=== PATIENT | female | born 1965 | race African-American/Black ===

== ENCOUNTER 2018-07-01 18:32 | Emergency (ER) | payer OTHER ==
--- NOTE | 2018-07-01 18:34 | PDOC ---
Rapid Medical Evaluation Time Seen by Provider: 07/01/18 18:34 Medical Evaluation: Allergies Allergy/AdvReac Type Severity Reaction Status Date / Time No Known Allergies Allergy Verified 10/10/12 13:21 07/01/18 18:35 I have performed a brief in-person evaluation of this patient. The patient presents with a chief complaint of: back pain s/p slip and fall yesterday Pertinent physical exam findings: diffuse paraspinal tenderness (thoracic, lumbar, and sacral). normal strength and sensation, ambulatory. I have ordered the following: n/a The patient will proceed to the ED for further evaluation. Discharge Disposition - Diagnosis Back pain Qualifiers: Back pain location: back pain in unspecified location Chronicity: acute Back pain laterality: midline Qualified Code(s): M54.9 - Dorsalgia, unspecified - Referrals - Patient Instructions - Post Discharge Activity
[2018-07-01 18:40] VITALS: BP 166/85; PULSE 75; TEMP 98.6; BMI 34.7
[2018-07-01] MEDS ORDERED: KETOROLAC TROMETHAMINE 60 MG/2 ML VIAL IM ONE (19:40)
[2018-07-01] MEDS ORDERED: CYCLOBENZAPRINE HCL 10 MG TABLET (FP) PO ONE (19:40)
[2018-07-01] MEDS ORDERED: CYCLOBENZAPRINE HCL 10 MG TABLET (FP) ONE (19:42)
[2018-07-01] MEDS ORDERED: KETOROLAC TROMETHAMINE 60 MG/2 ML VIAL ONE (19:42)
--- NOTE | 2018-07-01 19:46 | PDOC ---
History of Present Illness - General Chief Complaint: Injury Stated Complaint: FALL Time Seen by Provider: 07/01/18 18:34 History Source: Patient Exam Limitations: No Limitations - History of Present Illness Initial Comments: 07/01/18 19:57 Patient is a 52-year-old female who presents to the ER for back pain after mechanical slip and fall yesterday. Patient states she was walking in one of the supermarkets when she hit some water soaks and felt her back. She denies LOC or hitting her head. She states that she has back pain right from her neck all the way down to her low back. Denies numbness and tingling down the extremities, pain down the extremities, weakness of the extremities bladder bowel incontinence and saddle anesthesia. Past History - Travel Traveled outside of the country in the last 30 days: No Close contact w/someone who was outside of country & ill: No - Past Medical History Allergies/Adverse Reactions: Allergies Allergy/AdvReac Type Severity Reaction Status Date / Time No Known Allergies Allergy Verified 10/10/12 13:21 Home Medications: Ambulatory Orders Cyclobenzaprine HCl [Flexeril -] 10 mg PO HS #10 tablet 07/01/18 Diclofenac Sodium [Voltaren] 1 applic TP BID #1 tube 07/01/18 Asthma: Yes CVA: Yes COPD: No Diabetes: Yes HTN: Yes Seizures: Yes - Immunization History Immunization Up to Date: No - Suicide/Smoking/Psychosocial Hx Smoking Status: No Smoking History: Never smoked Have you smoked in the past 12 months: No Number of Cigarettes Smoked Daily: 0 Information on smoking cessation initiated: No Hx Alcohol Use: No Drug/Substance Use Hx: No Substance Use Type: None Review of Systems - Review of Systems Able to Perform ROS?: Yes Comments:: 07/01/18 19:41 CONSTITUTIONAL: Absent: fever, chills, diaphoresis, generalized weakness, malaise, loss of appetite GASTROINTESTINAL: Absent: abdominal pain, abdominal distension, nausea, vomiting, diarrhea, constipation, melena, hematochezia GENITOURINARY: Absent: dysuria, frequency, urgency, hesitancy, hematuria, flank pain, genital pain MUSCULOSKELETAL: Present: back pain Absent: arthralgia, joint swelling SKIN: Absent: rash, itching, pallor NEUROLOGIC: Absent: headache, focal weakness or paresthesias, dizziness, unsteady gait, seizure, mental status changes, bladder or bowel incontinence PSYCHIATRIC: Absent: anxiety, depression, suicidal or homicidal ideation, hallucinations. Is the patient limited Portuguese proficient: No *Physical Exam - Vital Signs Last Vital Signs Temp Pulse Resp BP Pulse Ox 98.6 F 75 16 166/85 100 07/01/18 18:36 07/01/18 18:36 07/01/18 18:36 07/01/18 18:36 07/01/18 18:36 - Physical Exam Comments: 07/01/18 19:41 GENERAL: Well developed, well nourished. Awake and alert. No acute distress. HEENT: Normocephalic, atraumatic. PERRLA, EOMI. No conjunctival pallor. Sclera are non- icteric. Moist mucous membranes. Oropharynx is clear. NECK: Supple. Full ROM. No JVD. Carotid pulses 2+ and symmetric, without bruits. No thyromegaly. No lymphadenopathy. CARDIOVASCULAR: Regular rate and rhythm. No murmurs, rubs, or gallops. Distal pulses are 2+ and symmetric. PULMONARY: No evidence of respiratory distress. Lungs clear to auscultation bilaterally. No wheezing, rales or rhonchi. ABDOMINAL: Soft. Non-tender. Non-distended. No rebound or guarding. No organomegaly. Normoactive bowel sounds. MUSCULOSKELETAL TTP of the paraspinous muscles b/l from C8-L5, with palpable knots consistent with muscle spasm. Negative straight leg raise testing b/l. Decreased range of motion at the back d/t pain. Normal ROM at all other joints. No bony deformities or tenderness. No CVA tenderness. EXTREMITIES: No cyanosis. No clubbing. No edema. No calf tenderness. SKIN: Warm and dry. Normal capillary refill. No rashes. No jaundice. NEUROLOGICAL: Alert, awake, appropriate. Cranial nerves 2-12 intact. No deficits to light touch and temperature in face, upper extremities and lower extremities. No motor deficits in the in face, upper extremities and lower extremities. Normoreflexic in the upper and lower extremities. Normal speech. Toes are down- going bilaterally. Gait is normal without ataxia. PSYCHIATRIC: Cooperative. Good eye contact. Appropriate mood and affect. Moderate Sedation - Procedure Monitoring Vital Signs: Procedure Monitoring Vital Signs Temperature 98.6 F 07/01/18 18:36 Pulse Rate 75 07/01/18 18:36 Respiratory Rate 16 07/01/18 18:36 Blood Pressure 166/85 07/01/18 18:36 O2 Sat by Pulse Oximetry (%) 100 07/01/18 18:36 Medical Decision Making - Medical Decision Making 07/01/18 19:42 -Pt with TTP of the paraspinous muscles b/l from C8-L5, with palpable knots consistent with muscle spasm. Negative straight leg raise testing b/l. -No fever. No saddle anesthesia or bladder/bowel incontinence. No CVA tenderness. -Pt is neurologically intact on exam with no focal findings. -Toradol given with relief of symptoms -DC home. Ortho follow up given for if symptoms do not resolve. -I discussed the physical exam findings, ancillary test results and final diagnoses with the patient. I answered all of the patient's questions. The patient was satisfied with the care received and felt comfortable with the discharge plan and treatment plan. The Patient agrees to follow up with the primary care physician/specialist within 24-72 hours. Return precautions were given. *DC/Admit/Observation/Transfer Diagnosis at time of Disposition: Back pain Qualifiers: Back pain location: back pain in unspecified location Chronicity: acute Back pain laterality: midline Qualified Code(s): M54.9 - Dorsalgia, unspecified - Discharge Dispostion Condition at time of disposition: Stable - Prescriptions Prescriptions: Cyclobenzaprine HCl [Flexeril -] 10 mg PO HS #10 tablet Diclofenac Sodium [Voltaren] 1 applic TP BID #1 tube - Referrals Referrals: Morgan Wilkinson MD [Staff Physician] - - Patient Instructions Printed Discharge Instructions: DI for Low Back Pain, DI for Thoracic Back Pain Additional Instructions: You have back pain due to a muscle spasm. Please use the cream twice a day. You were also prescribed Flexeril. Please take this medication every 8 hours for the first day. Then take the medication before you go to bed. Do not drive after taking this medication as it may make you sleepy. You may use warm compresses on your back to help with her symptoms. Please follow-up with your primary care doctor. If your symptoms do not resolve in 3-5 days, follow-up with orthopedics. A referral has been provided for you. Return to the emergency department if you have worsening back pain, bladder or bowel incontinence, numbness and tingling in her legs, changes in the way you walk, or any new or worsening symptoms. - Post Discharge Activity
== END 2018-07-01 20:05 | disposition home or self-care (01) ==
LOC: JERFT 18:32
PROC: 3E0233Z Introduction of Anti-inflammatory into Muscle, Percutaneous Approach (ICD-10-PCS; principal; 2018-07-01)
DX: M54.89 Other dorsalgia (principal); M62.830 Muscle spasm of back; W01.0XXA Fall on same level from slipping, tripping and stumbling without subsequent striking against object, initial encounter; Y93.89 Activity, other specified; Y92.512 Supermarket, store or market as the place of occurrence of the external cause; Y99.8 Other external cause status; I10 Essential (primary) hypertension; E11.9 Type 2 diabetes mellitus without complications; Z86.69 Personal history of other diseases of the nervous system and sense organs; Z87.19 Personal history of other diseases of the digestive system; Z86.73 Personal history of transient ischemic attack (TIA), and cerebral infarction without residual deficits
CPT/HCPCS: 99281-25

== ENCOUNTER 2018-12-09 21:28 | Emergency (ER) | payer OTHER ==
[2018-12-09 21:37] VITALS: BMI 36.6
--- NOTE | 2018-12-09 21:47 | PDOC ---
History of Present Illness - General Chief Complaint: Headache Stated Complaint: MIGRAINE Time Seen by Provider: 12/09/18 21:34 History Source: Patient - History of Present Illness Initial Comments: 12/09/18 22:23 The patient is a 53 year old female with a PMH of TIA and HTN who presents to our ED with a c/o 2 day h/o headache. Headache started acutely yesterday morning and is frontal, pounding and constant. No vomiting or visual changes. Excedrin has provided little relief. Notes she has not taken her HTN medications in the last 7 years due to life stressors. TIA's in 1999 and 2011 and presented with LUE numbness/weakness. NKDA Past History - Past Medical History Allergies/Adverse Reactions: Allergies Allergy/AdvReac Type Severity Reaction Status Date / Time No Known Allergies Allergy Verified 12/09/18 21:34 Home Medications: Ambulatory Orders Cyclobenzaprine HCl [Flexeril -] 10 mg PO HS #10 tablet 07/01/18 Diclofenac Sodium [Voltaren] 1 applic TP BID #1 tube 07/01/18 Asthma: Yes CVA: Yes (TIA) COPD: No Diabetes: Yes HTN: Yes Seizures: Yes - Immunization History Immunization Up to Date: No - Suicide/Smoking/Psychosocial Hx Smoking Status: No Smoking History: Never smoked Have you smoked in the past 12 months: No Number of Cigarettes Smoked Daily: 0 Hx Alcohol Use: No Drug/Substance Use Hx: No Substance Use Type: None Review of Systems - Review of Systems Constitutional: No: Chills, Fever HEENTM: Yes: Other (photophobia, pounding frontal headache) Respiratory: No: Cough, Shortness of Breath Cardiac (ROS): No: Chest Pain, Lightheadedness, Syncope ABD/GI: No: Constipated, Diarrhea, Nausea, Vomiting *Physical Exam - Vital Signs Last Vital Signs Temp Pulse Resp BP Pulse Ox 98.2 F 56 L 18 188/90 H 99 12/09/18 21:34 12/09/18 21:34 12/09/18 21:34 12/09/18 21:34 12/09/18 21:34 - Physical Exam Comments: 12/10/18 00:50 Awake, alert, photophobia CV: S1, S2, RRR Respiratory: CLTA B/L no wheeze/crackle Abdomen: soft, non-tender, (+) bowel sounds Neuro: CN II-XII intact, A&O x3, mild decreased sensation in L face, LUE/LLE ED Treatment Course - LABORATORY CBC & Chemistry Diagram: 12/09/18 22:55 12/09/18 22:55 Medical Decision Making - Medical Decision Making 12/09/18 22:24 53 year old female with headache Hypertensive (188/90) Mild decreased sensation in LUE/LLE - possibly chronic Will obtain CT Head to evaluate for CVA, Headache cocktail. Reassess Patient needs outpatient HTN control. 12/09/18 22:55 12/09/18 23:36 Patient reassessed @ bedside Symptomatically improved Tolerating PO intake 12/10/18 00:[address] negative Repeat BP 142/88 Review of EMR shows patient was previously evaluated by Dr. Kruger for possible MS; patient counseled to f/u with Dr. Saleem as well as establishing primary care I discussed the physical exam findings, ancillary test results and final diagnoses with the patient. I answered all of the patient's questions. The patient was satisfied with the care received and felt comfortable with the discharge plan and treatment plan. The patient will return to the Emergency Department with any new, persistent or worsening symptoms. *DC/Admit/Observation/Transfer Diagnosis at time of Disposition: Headache - Discharge Dispostion Disposition: HOME Condition at time of disposition: Good Decision to Admit order: Yes - Referrals - Patient Instructions Printed Discharge Instructions: DI for Headache Additional Instructions: Please make an appointment with a primary care physician to establish intermission coordinator medical care. We have provided a referral or you can call your insurance company for a list of doctors. Please also follow-up with Dr. Saleem in the next 1 week for evaluation of your headaches. It is imperative that you are evaluated by both primary care and a neurologist. Return to the Emergency Department for any new/worsening/concerning conditions. - Post Discharge Activity
--- NOTE | 2018-12-09 21:56 | PDOC ---
Rapid Medical Evaluation Chief Complaint: Headache Time Seen by Provider: 12/09/18 21:34 Medical Evaluation: Allergies Allergy/AdvReac Type Severity Reaction Status Date / Time No Known Allergies Allergy Verified 12/09/18 21:34 12/09/18 21:34 I have performed a brief in-person evaluation of this patient. The patient presents with a chief complaint of: severe headache x 2 days- stopped taking medications x 7 years for HTN and hx of TIA x 2. Pertinent physical exam findings: comes in with severe photophobia, no relief with Exedrine. . Left sided weakness and mildly unsteady, I have ordered the following: taken to room 12 for immediate evaluation The patient will proceed to the ED for further evaluation. 12/09/18 22:05 Discharge Disposition - Diagnosis Headache - Referrals - Patient Instructions - Post Discharge Activity
[2018-12-09] MEDS ORDERED: METOCLOPRAMIDE HCL INJECTION 10 MG/2 ML VIAL IVPUSH ONE (22:22)
[2018-12-09] MEDS ORDERED: ACETAMINOPHEN 1000 MG/100 ML VIAL (NON FORMULARY) IVPB ONE (22:22)
[2018-12-09] MEDS ORDERED: SODIUM CHLORIDE 0.9% 500 ML INFUS.BAG IV ONE (22:22)
[2018-12-09] MEDS ORDERED: ACETAMINOPHEN INJECTION 100 ML IVPB ONE (22:25)
[2018-12-09] MEDS ORDERED: METOCLOPRAMIDE HCL INJECTION 10 MG/2 ML VIAL ONE (22:26)
--- NOTE | 2018-12-09 22:56 | PDOC ---
Documentation entered by Kal Martínez SCRIBE, acting as scribe for Porsche Hunter DO. Porsche Hunter DO: This documentation has been prepared by the Mauricio munoz Daniel, SCRIBE, under my direction and personally reviewed by me in its entirety. I confirm that the documentation accurately reflects all work, treatment, procedures, and medical decision making performed by me. Attending Attestation - Resident Resident Name: Rivka Fajardo - ED Attending Attestation I have performed the following: I have examined & evaluated the patient, The case was reviewed & discussed with the resident, I agree w/resident's findings & plan, Exceptions are as noted - HPI HPI: 12/09/18 22:23 The patient is a 53 year old female with a past medical history of TIA (2001, 2011), migraines, and HTN (non compliant with meds, havent taken meds in 7 years) here today for evaluation of headache. The patient reports that her headache began yesterday morning and has gotten worse since then. She describes it as a frontal pressure. She notes associated eye pressure with no visual changes. Patient denies lightheadedness. Denies fever, chills. Denies chest pain, shortness of breath. Denies nausea, vomiting, diarrhea, abdominal pain. Allergies: NKA PCP: none - Physicial Exam PE: 12/10/18 00:42 Constitutional: Awake, alert, oriented. No acute distress. Head: Normocephalic. Atraumatic Eyes: PERRL. EOMI. Conjunctivae are not pale. ENT: Mucous membranes are moist and intact. Posterior pharynx without exudates or erythema. Uvula midline. Neck: Supple. Full ROM. No lymphadenopathy. Cardiovascular: Regular rate. Regular rhythm. S1, S2 regular. Distal pulses are 2+ and symmetric. Pulmonary/Chest: No evidence of respiratory distress. Clear to auscultation bilaterally No wheezing, rales or rhonchi. Abdominal: Soft and non-distended. There is no tenderness. No rebound, guarding or rigidity. No organomegaly. No palpable masses. Good bowel sounds. Back: No CVA tenderness. Musculoskeletal: No edema. No cyanosis. No clubbing. Full range of motion in all extremities. No calf tenderness. Radial/pedal pulses are intact and 2+ bilaterally Skin: Skin is warm and dry. No petechiae. No purpura. Neurological: +sensation is mildly diminished in left cheek and forearm ( patient states she has had this since 2011). Alert and oriented to person, place , and time. Cranial nerves II-XII are grossly intact. Normal speech. Strength is grossly symmetric and 5/5 in upper and lower extremities. Psychiatric: Good eye contact. Normal interaction, affect and behavior. - Medical Decision Making 12/09/18 22:53 I, Dr. Porsche Hunter, DO, attest that this document has been prepared under my direction and personally reviewed by me in its entirety. I further attest, that it accurately reflects all work, treatment, procedures and medical decision -making performed by me. 12/09/18 22:54 a/p: 53yo female with hx of TIA and migraines presents c/o page x 2 days -pt states page x 2 days, has taken excedrin without relief -pt states she has had page similar and worse in the past -states decreased sensation to L face and L arm since tia in 2011- no new neuro findings -pt states she was seeing a neurologist in 2001 and 2011, but has not followed up with any physicians, pt also states she has not taken any meds for bp since 2012. -pt denies cp/sob -+photophobia and phonophobia -will send labs, head ct, will monitor, medicate, and reassess 12/10/18 00:[address] negative labs reviewed pt sitting up and eating stable for dc to home with neuro follow up 142/88 12/10/18 00:48
[2018-12-09 23:09] LABS: BASO % 0.8 % (0-2.0); EOS % 1.6 % (0-4.5); HEMATOCRIT 33.4 % (32.4-45.2); HEMOGLOBIN 10.9 GM/dL (10.7-15.3); LYMPH % 42.4 % (8-40); MCH 27.4 pg (25.7-33.7); MCHC 32.8 g/dl (32.0-36.0); MEAN CELL VOLUME 83.7 fl (80-96); MEAN PLT VOLUME 10.3 fl (7.5-11.1); NEUT % 47.2 % (42.8-82.8); PLATELET COUNT 178 K/MM3 (134-434); RBC 3.99 M/mm3 (3.60-5.2); RDW 13.9 % (11.6-15.6); WHITE BLOOD COUNT 5.2 K/mm3 (4.0-10.0)
[2018-12-09 23:34] LABS: ALBUMIN 3.3 g/dl (3.4-5.0); BILIRUBIN,TOTAL 0.2 mg/dL (0.2-1); BLOOD UREA NITROGEN 15.9 mg/dL (7-18); CALCIUM 8.4 mg/dL (8.5-10.1); CREATININE 0.8 mg/dL (0.55-1.3); POTASSIUM 3.5 mmol/L (3.5-5.1); TOT PROT 6.9 g/dl (6.4-8.2)
[2018-12-10 01:48] VITALS: BP 131/87; PULSE 58; TEMP 97.1
== END 2018-12-10 01:49 | disposition home or self-care (01) ==
LOC: JER 21:28
PROC: 3E033NZ Introduction of Analgesics, Hypnotics, Sedatives into Peripheral Vein, Percutaneous Approach (ICD-10-PCS; principal; 2018-12-09)
PROC: 3E033GC Introduction of Other Therapeutic Substance into Peripheral Vein, Percutaneous Approach (ICD-10-PCS; 2018-12-09)
DX: R51 Headache (principal); I10 Essential (primary) hypertension; Z86.73 Personal history of transient ischemic attack (TIA), and cerebral infarction without residual deficits; M62.81 Muscle weakness (generalized)
CPT/HCPCS: 36415; 70450-TC; 80053; 84703; 85025; 99281-25; J0131

== ENCOUNTER 2019-01-14 10:29 | Inpatient (IN) | payer OTHER ==
[2019-01-14 10:38] VITALS: BMI 37.2
[2019-01-14] MEDS ORDERED: methylPREDNISolone NA SUCC 125 MG/2 ML VIAL IVPUSH ONE (11:35)
[2019-01-14] MEDS ORDERED: methylPREDNISolone NA SUCC 1000 MG/8 ML VIAL IVPB ONE (11:41)
[2019-01-14] MEDS ORDERED: methylPREDNISolone NA SUCC 1000 MG/8 ML VIAL ONE (11:49)
[2019-01-14] MEDS ORDERED: ACETAMINOPHEN 325 MG TABLET (FP) PO ONE (12:09)
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
[2019-01-14 12:40] LABS: BASO % 0.5 % (0-2.0); EOS % 0.9 % (0-4.5); HEMATOCRIT 36.8 % (32.4-45.2); HEMOGLOBIN 12.1 GM/dL (10.7-15.3); MCH 27.8 pg (25.7-33.7); MEAN CELL VOLUME 84.3 fl (80-96); MEAN PLT VOLUME 9.6 fl (7.5-11.1); MONO % 6.8 % (3.8-10.2); NEUT % 43.8 % (42.8-82.8); PLATELET COUNT 191 K/MM3 (134-434); RBC 4.36 M/mm3 (3.60-5.2); RDW 13.7 % (11.6-15.6); WHITE BLOOD COUNT 3.6 K/mm3 (4.0-10.0)
[2019-01-14] MEDS ORDERED: ONDANSETRON 4 MG/2 ML VIAL IVPB ONE (12:48)
[2019-01-14] MEDS ORDERED: ACETAMINOPHEN 325 MG TABLET (FP) ONE (12:51)
[2019-01-14 13:07] LABS: INR 1.08 (0.83-1.09); PROTHROMBIN TIME (PATIENT) 12.7 SEC (9.7-13.0)
[2019-01-14 13:12] LABS: ALBUMIN 3.7 g/dl (3.4-5.0); BILIRUBIN,TOTAL 0.4 mg/dL (0.2-1); BLOOD UREA NITROGEN 11.8 mg/dL (7-18); CALCIUM 9.2 mg/dL (8.5-10.1); CREATININE 0.9 mg/dL (0.55-1.3); POTASSIUM 3.9 mmol/L (3.5-5.1); TOT PROT 7.9 g/dl (6.4-8.2)
--- NOTE | 2019-01-14 13:59 | EKG ---
Test Reason : Blood Pressure : / mmHG Vent. Rate : 049 BPM Atrial Rate : 049 BPM P-R Int : 196 ms QRS Dur : 080 ms QT Int : 428 ms P-R-T Axes : 031 036 021 degrees QTc Int : 386 ms SINUS BRADYCARDIA OTHERWISE NORMAL ECG WHEN COMPARED WITH ECG OF 08-JUL-2011 11:10, NO SIGNIFICANT CHANGE WAS FOUND Confirmed by GUILLERMO NIÑO MD ([id number]) on 01/14/2019 1:59:02 PM Referred By: Confirmed By:GUILLERMO NIÑO MD
--- NOTE | 2019-01-14 14:56 | CON.NEURO ---
Consult Reason for Consultation:: weakness - History of Present Illness History of Present Illness: [id number] right-handed female patient with present medical history significant for Coronary artery disease Osteoarthritis Migraine headache Chronic low back pain Hypertension Diabetes Questionable TIAs in the past Presents to the hospital with a chief complaint of difficulty with the legs and weakness. Patient was evaluated in my office few weeks ago with a chief complaint of headache patient was referred for an MRI of the brain which showed evidence of supratentorial demyelinating disease questionable multiple sclerosis patient had in the past MRIs with questionable diagnosis of MS patient never had spinal tap in the past. Patient denies any blurry vision double vision no I pain. In the emergency room patient complain of urinary incontinence and fecal incontinence with the leg weakness. MRI of the thoracic and the lumbosacral spine was ordered. - History Source History Provided By: Patient Limitations to Obtaining History: No Limitations - Alcohol/Substance Use Hx Alcohol Use: No - Smoking History Smoking history: Never smoked Have you smoked in the past 12 months: No Aproximately how many cigarettes per day: 0 Home Medications - Allergies Allergies/Adverse Reactions: Allergies Allergy/AdvReac Type Severity Reaction Status Date / Time No Known Allergies Allergy Verified 01/14/19 10:38 - Home Medications Home Medications: Ambulatory Orders Cyclobenzaprine HCl [Flexeril -] 10 mg PO HS #10 tablet 07/01/18 Diclofenac Sodium [Voltaren] 1 applic TP BID #1 tube 07/01/18 Review of Systems - Review of Systems Constitutional: reports: No Symptoms Eyes: reports: No Symptoms Neurological: reports: Headache, Incoordination, Numbness, Parasthesia Physical Exam-Neuro Vital Signs: Vital Signs Temperature 98.2 F 01/14/19 10:35 Pulse Rate 81 01/14/19 10:38 Respiratory Rate 18 01/14/19 10:38 Blood Pressure 173/109 H 01/14/19 10:38 O2 Sat by Pulse Oximetry (%) 97 01/14/19 12:44 Constitutional: Yes: Well Nourished Neck: Yes: WNL Cardiovascular: Yes: WNL Labs: CBC, BMP 01/14/19 12:30 01/14/19 12:30 INR, PTT INR 1.08 (0.83-1.09) 01/14/19 12:30 - Neuro Exam Level Of Consciousness: Yes: Oriented to Person, Oriented to Place, Oriented to Time Eyes: Yes: PERRLA Speech: WNL Dominant Hand: Right Cranial Nerves II-XII Intact: Yes Gag: Present DTR's: 1+ Left Bicep, 1+ Right Bicep, 1+ Right Tricep, 1+ Left Brachioradialis Response to light touch: Normal Response to pain prick: Normal Response to temperature: Normal Response to vibration: Normal Motor Strength: 3/5: Left Arm, Right Arm, Left Leg, Right Leg, 4/5: Right Leg Gait: Deferred Problem List - Problems (1) Multiple sclerosis Assessment/Plan: questionable flareup of demyelinating disease 1. Fall precautions. 2. MRI of thoracic spine with no contrast 3. MRI of the lumbosacral spine with no contrast. 4. Decadron 6 mg every 6. 5. BGM every shift 66. Tight blood sugar control. 7. Physical therapy. 8. Hemoglobin A1c Code(s): G35 - MULTIPLE SCLEROSIS
[2019-01-14] MEDS ORDERED: morphine CARPU-JECT 4 MG/1 ML DISP.SYRIN IVPUSH ONE (15:19)
[2019-01-14] MEDS ORDERED: morphine SULFATE 4 MG/ML VIAL ONE (15:56)
--- NOTE | 2019-01-14 16:27 | PN ---
Teaching Attending Note Name of Resident: Mamie Cedeno ATTENDING PHYSICIAN STATEMENT I saw and evaluated the patient. I reviewed the resident's note and discussed the case with the resident. I agree with the resident's findings and plan as documented. SUBJECTIVE: Patient is a 53 y/o female with PMHx of HTN, HLD, pre-DM, possible MS, presents to the ED with complaints of lower leg weakness (from T5 down), started yesterday but progressed further today where she started to have urinary and fecaL incontinence, became so scared and realized that something is wrong with him. Normally does not use cane or a walker. Recent brain MRI on 01/04/19 shows demylinating disease. As per patient she improved after having 1gm of Solu Medrol. OBJECTIVE: Vital Signs Temperature 98.2 F 01/14/19 10:35 Pulse Rate 81 01/14/19 10:38 Respiratory Rate 18 01/14/19 10:38 Blood Pressure 173/109 H 01/14/19 10:38 O2 Sat by Pulse Oximetry (%) 97 01/14/19 12:44 GENERAL: Awake, alert, and fully oriented, in mild distress. EYES:PEERLA: EOMI no scleral icterus NECK: no JVD; no lymphadenoapthy LUNGS: CTA B/L; no rales, rhonchi or wheezing HEART: Regular rate and rhythm, normal S1 and S2 without murmur, rub or gallop. ABDOMEN: Soft, nontender, not distended, normoactive bowel sounds, no guarding, no rebound, no masses. No hepatomegaly or splenomegaly. MUSCULOSKELETAL: Normal range of motion at all joints. No bony deformities or tenderness. No CVA tenderness. EXTREMITIES: warml well-perfused no clubbing/cyansois or edema NEUROLOGICAL: RUE/LUE: 5/5 srength B/L; RLE: 3/5 strength diminished sensation ; LLE: 4/5 strength sensation intact 1+ DTR"S B/L PSYCHIATRIC: Cooperative. Good eye contact. Appropriate mood and affect. SKIN: Warm, dry, normal turgor, no rashes or lesions noted, normal capillary refill. CBCD WBC 3.6 K/mm3 (4.0-10.0) L 01/14/19 12:30 RBC 4.36 M/mm3 (3.60-5.2) 01/14/19 12:30 Hgb 12.1 GM/dL (10.7-15.3) 01/14/19 12:30 Hct 36.8 % (32.4-45.2) 01/14/19 12:30 MCV 84.3 fl (80-96) 01/14/19 12:30 MCHC 33.0 g/dl (32.0-36.0) 01/14/19 12:30 RDW 13.7 % (11.6-15.6) 01/14/19 12:30 Plt Count 191 K/MM3 (134-434) 01/14/19 12:30 MPV 9.6 fl (7.5-11.1) 01/14/19 12:30 CMP Sodium 139 mmol/L (136-145) 01/14/19 12:30 Potassium 3.9 mmol/L (3.5-5.1) 01/14/19 12:30 Chloride 104 mmol/L (98-107) 01/14/19 12:30 Carbon Dioxide 30 mmol/L (21-32) 01/14/19 12:30 Anion Gap 5 MMOL/L (8-16) L 01/14/19 12:30 BUN 11.8 mg/dL (7-18) 01/14/19 12:30 Creatinine 0.9 mg/dL (0.55-1.3) 01/14/19 12:30 Random Glucose 89 mg/dL (74-106) 01/14/19 12:30 Calcium 9.2 mg/dL (8.5-10.1) 01/14/19 12:30 Total Bilirubin 0.4 mg/dL (0.2-1) 01/14/19 12:30 AST 20 U/L (15-37) 01/14/19 12:30 ALT 32 U/L (13-61) 01/14/19 12:30 Alkaline Phosphatase 148 U/L (45-117) H 01/14/19 12:30 Total Protein 7.9 g/dl (6.4-8.2) 01/14/19 12:30 Albumin 3.7 g/dl (3.4-5.0) 01/14/19 12:30 CARDIAC ENZYMES Creatine Kinase 152 U/L (26-192) 01/14/19 12:30 Troponin I < 0.02 ng/ml (0.00-0.05) 01/14/19 12:30 Home Medications Medication Instructions Recorded Cyclobenzaprine HCl [Flexeril -] 10 mg PO HS #10 tablet 07/01/18 Diclofenac Sodium [Voltaren] 1 applic TP BID #1 tube 07/01/18 Current Medications Generic Name Dose Route Start Last Admin Trade Name Daniella PRN Reason Stop Dose Admin Dexamethasone Sodium Phosphate 6 mg 01/14/19 17:15 01/14/19 18:54 Decadron Injection - IVPB 6 mg Q6H PRANAY Administration Famotidine/Sodium Chloride 20 mg in 50 mls @ 100 mls/hr 01/14/19 22:00 Pepcid 20 Mg Premixed Ivpb - IVPB BID PRANAY Morphine Sulfate 2 mg 01/14/19 18:30 01/14/19 18:55 Morphine Sulfate IVPUSH 2 mg Q4H PRANAY Administration Thoracic CT: No compression fx or sublaxation noted. CT scan done showing no evidence of cord compression ASSESSMENT AND PLAN: Patient is a 53 y/o female with PMH of HTN, HLD, pre-DM, possible MS, TIA X2 presents to the ED with complaints of lower leg weakness (from T5 down) with worsening symptoms today. #Acute LE weakness with urinary and fecal incontinence: ordered MRI of thoracic and Lspine' discussed with to start the patient on Decadron 6mg IV q6h, given 1gm of soul medrol in ED. Dr. Saleem consulted, sliding scale with coverage since the patient is on high steroid dose. neuro checks , physical therapy. Patient stated that she is improving # HTN: not on any medications currently. sodium controlled diet DVT PPX: SCDS mri is pending
[2019-01-14] MEDS ORDERED: INSULIN (NOVOLOG) ASPART 100 UNITS/ML 10ML VIAL ONE (16:36)
--- NOTE | 2019-01-14 17:26 | HP ---
CHIEF COMPLAINT: leg weakess PCP: neurologist: dr. saleem HISTORY OF PRESENT ILLNESS: 53 y/o female with PMH of HTN, HLD, pre-DM, ? MS, TIZ X2 presents to the ED with complaints of leg weakness (from t5 down). Patient states that [facility] and then starting on Thursday she started to have lower extrermity weakness- she states hat she is having weakness from her chest all the way down., however she is still ambulating. Last night she had an episode of bowel and bladder incontinence (she felt the pressure like she had to go however she didn;t feel herself actually going) and this morning the same thing happened so she came to the ED> she is in the proccess of being worked up for MS (recent brain MRI on 01/04/19 shows demyleinating disease) she denies any recent travel or any sick contacts ER course was notable for: (1) thoracic CT spine shows no evidence of cord compression or spinal stenosis; MRI pending (2)given 1.25 gram solumedrol (3)dr. saleem consulted Recent Travel: denies PAST MEDICAL HISTORY: see abve PAST SURGICAL HISTORY: hysterectomy Social History: Smoking:denies Alcohol:social alcohol use Drugs: denies Family History: mothers side- breast CA, stoamch CA, HTN, DM Allergies No Known Allergies Allergy (Verified 01/14/19 10:38) HOME MEDICATIONS: Home Medications Medication Instructions Recorded Cyclobenzaprine HCl [Flexeril -] 10 mg PO HS #10 tablet 07/01/18 Diclofenac Sodium [Voltaren] 1 applic TP BID #1 tube 07/01/18 REVIEW OF SYSTEMS CONSTITUTIONAL: Absent: fever, chills, diaphoresis, generalized weakness, malaise, loss of appetite, weight change HEENT: Absent: rhinorrhea, nasal congestion, throat pain, throat swelling, difficulty swallowing, mouth swelling, ear pain, eye pain, visual changes CARDIOVASCULAR: Absent: chest pain, syncope, palpitations, irregular heart rate, lightheadedness , peripheral edema RESPIRATORY: Absent: cough, shortness of breath, dyspnea with exertion, orthopnea, wheezing, stridor, hemoptysis GASTROINTESTINAL: Absent: abdominal pain, abdominal distension, nausea, vomiting, diarrhea, constipation, melena, hematochezia GENITOURINARY: Absent: dysuria, frequency, urgency, hesitancy, hematuria, flank pain, genital pain MUSCULOSKELETAL: Absent: myalgia, arthralgia, joint swelling, back pain, neck pain SKIN: Absent: rash, itching, pallor HEMATOLOGIC/IMMUNOLOGIC: Absent: easy bleeding, easy bruising, lymphadenopathy, frequent infections ENDOCRINE: Absent: unexplained weight gain, unexplained weight loss, heat intolerance, cold intolerance NEUROLOGIC: Present: focal weakness or parsthesias, bladder/bowel incontinence Absent: headache,, dizziness, unsteady gait, seizure, mental status changes, PSYCHIATRIC: Absent: anxiety, depression, suicidal or homicidal ideation, hallucinations. PHYSICAL EXAMINATION Vital Signs - 24 hr 01/14/19 01/14/19 01/14/19 10:35 10:38 12:44 Temperature 98.2 F Pulse Rate 63 Pulse Rate [ 81 Left Radial] Respiratory 16 18 Rate Blood Pressure 196/89 H Blood Pressure 173/109 H [Right Arm] O2 Sat by Pulse 98 97 97 Oximetry (%) GENERAL: Awake, alert, and fully oriented, in no acute distress. EYES:PEERLA: EOMI no scleral icterus NECK: no JVD; no lymphadenoapthy LUNGS: CTA B/L; no rales, rhonchi or wheezing HEART: Regular rate and rhythm, normal S1 and S2 without murmur, rub or gallop. ABDOMEN: Soft, nontender, not distended, normoactive bowel sounds, no guarding, no rebound, no masses. No hepatomegaly or splenomegaly. MUSCULOSKELETAL: Normal range of motion at all joints. No bony deformities or tenderness. No CVA tenderness. EXTREMITIES: warml well-perfused no clubbing/cyansois or edema NEUROLOGICAL: RUE/LUE: 5/5 srength B/L; RLE: 3/5 strength diminished sensation ; LLE: 4/5 strength sensation intact 1+ DTR"S B/L PSYCHIATRIC: Cooperative. Good eye contact. Appropriate mood and affect. SKIN: Warm, dry, normal turgor, no rashes or lesions noted, normal capillary refill. Laboratory Results - last 24 hr 01/14/19 01/14/19 01/14/19 12:30 12:30 12:30 WBC RBC Hgb Hct MCV MCH MCHC RDW Plt Count MPV Absolute Neuts (auto) Neutrophils % Lymphocytes % Monocytes % Eosinophils % Basophils % Nucleated RBC % PT with INR 12.70 INR 1.08 Sodium Potassium Chloride Carbon Dioxide Anion Gap BUN Creatinine Est GFR (CKD-EPI)AfAm Est GFR (CKD-EPI)NonAf Random Glucose Calcium Total Bilirubin AST ALT Alkaline Phosphatase Creatine Kinase 152 Creatine Kinase Index 0.7 CK-MB (CK-2) 1.1 Troponin I < 0.02 Total Protein Albumin Blood Type O POSITIVE Antibody Screen Negative 01/14/19 01/14/19 12:30 12:30 WBC 3.6 L RBC 4.36 Hgb 12.1 Hct 36.8 MCV 84.3 MCH 27.8 MCHC 33.0 RDW 13.7 Plt Count 191 MPV 9.6 Absolute Neuts (auto) 1.6 Neutrophils % 43.8 Lymphocytes % 48.0 H Monocytes % 6.8 Eosinophils % 0.9 Basophils % 0.5 Nucleated RBC % 0 PT with INR INR Sodium 139 Potassium 3.9 Chloride 104 Carbon Dioxide 30 Anion Gap 5 L BUN 11.8 Creatinine 0.9 Est GFR (CKD-EPI)AfAm 84.61 Est GFR (CKD-EPI)NonAf 73.00 Random Glucose 89 Calcium 9.2 Total Bilirubin 0.4 AST 20 ALT 32 Alkaline Phosphatase 148 H Creatine Kinase Creatine Kinase Index CK-MB (CK-2) Troponin I Total Protein 7.9 Albumin 3.7 Blood Type Antibody Screen ASSESSMENT/PLAN: 53 y/o female with PMH of HTN, HLD, pre-DM, ? MS, TIA X2 presents to the ED with complaints of leg weakness (from t5 down) since Thursday. #LE weakness possibly 2/2 transverse myelitis v. MS v. pateint has been experiencing weakness since thursday -CT scan done showing no evidence of cord compression -MRI pending (to be done at 8 pm) -Decadron 6mg Q6H -Dr. Saleem consulted -tight glucose control -neuro checks -physical therapy #HTN patient not on any medications currently -monitor hemodynamics F/E/N not on fluids monitor hemodynamics sodium controlled diet DVT PPX: SCDS Problem List - Problem (1) Back pain Code(s): M54.9 - DORSALGIA, UNSPECIFIED Qualifiers: Back pain location: thoracic back pain Chronicity: acute Back pain laterality: midline Qualified Code(s): M54.6 - Pain in thoracic spine (2) Leg weakness Code(s): R29.898 - OTH SYMPTOMS AND SIGNS INVOLVING THE MUSCULOSKELETAL SYSTEM Qualifiers: Laterality: bilateral Qualified Code(s): R29.898 - Other symptoms and signs involving the musculoskeletal system (3) Multiple sclerosis Code(s): G35 - MULTIPLE SCLEROSIS Visit type - Emergency Visit Emergency Visit: Yes ED Registration Date: 01/14/19 Care time: The patient presented to the Emergency Department on the above date and was hospitalized for further evaluation of their emergent condition. - New Patient This patient is new to me today: Yes Date on this admission: 01/14/19 - Critical Care Critical Care patient: No ATTENDING PHYSICIAN STATEMENT I saw and evaluated the patient. I reviewed the resident's note and discussed the case with the resident. I agree with the resident's findings and plan as documented. SUBJECTIVE: OBJECTIVE: ASSESSMENT AND PLAN:
[2019-01-14] MEDS: DEXAMETHASONE SOD PHOSPHATE 10 MG/1 ML VIAL IVPB SCH ×2 (18:54→22:28)
[2019-01-14] MEDS: MORPHINE SULFATE 2 MG/ML VIAL IVPUSH SCH ×2 (18:55→22:28)
[2019-01-14] MEDS ORDERED: PNEUMOC 13-VAL CONJ-DIP CRM/PF 0.5 ML DISP.SYRIN IM ONE (19:14)
[2019-01-14] MEDS: INSULIN SLIDING SCALE (NOVOLOG) 1 VIAL SQ SCH (21:42)
[2019-01-14] MEDS: amLODIPine BESYLATE 2.5 MG TABLET (FP) PO SCH (21:42)
[2019-01-14] MEDS: FAMOTIDINE 20 MG/50 ML IVPB 20 MG/50 ML MG IVPB SCH (21:42)
--- NOTE | 2019-01-15 00:24 | HOSP ---
Subjective - Review of Symptoms Subjective: Requested by primary team to follow up on MRI of L spine to r/o spinal stenosis. IOC findings showed large 7 cm R renal mass concerning of RCC. L4-L5 level with mild to mod broad based posterior disc bulge a/w b/l facet hypertrophic dege changes causing mild to possibly mod spinal stenosis and mild b/l neural foraminal narrowing. L5-S1 level there is mild central disc bulge associated w/ some b/l facet degen. changes, causing mild b/l neural foraminal narrowing, but no definite spinal stenosis. Neurosurg contacted (Dr. Cheng): Given review of MRI imaging, does not believe spinal stenosis is severe enough to cause bowel/urinary incontinence. Would not suggest acute neurosurg intervention at this time. Symptoms likely related to demyelinating disease; MS more likely etiology. Physical Examination Vital Signs: Vital Signs Temperature 98.5 F 01/14/19 22:10 Pulse Rate 54 L 01/14/19 22:10 Respiratory Rate 16 01/14/19 22:10 Blood Pressure 146/75 01/14/19 22:10 O2 Sat by Pulse Oximetry (%) 99 01/14/19 17:55 Labs: CBC, BMP 01/14/19 12:30 01/14/19 12:30 Visit type - Emergency Visit Emergency Visit: Yes ED Registration Date: 01/14/19 Care time: The patient presented to the Emergency Department on the above date and was hospitalized for further evaluation of their emergent condition. - New Patient This patient is new to me today: Yes Date on this admission: 01/18/19 - Critical Care Critical Care patient: No
[2019-01-15] MEDS: MORPHINE SULFATE 2 MG/ML VIAL IVPUSH SCH ×3 (03:30→10:24)
[2019-01-15] MEDS: DEXAMETHASONE SOD PHOSPHATE 10 MG/1 ML VIAL IVPB SCH ×4 (06:10→22:15)
[2019-01-15] MEDS: INSULIN SLIDING SCALE (NOVOLOG) 1 VIAL SQ SCH ×3 (06:10→16:55)
[2019-01-15 07:18] LABS: EOS % 0.1 % (0-4.5); HEMATOCRIT 38.6 % (32.4-45.2); HEMOGLOBIN 12.7 GM/dL (10.7-15.3); LYMPH % 10.7 % (8-40); MCH 27.7 pg (25.7-33.7); MCHC 32.9 g/dl (32.0-36.0); MEAN CELL VOLUME 84.2 fl (80-96); MEAN PLT VOLUME 10.5 fl (7.5-11.1); MONO % 1.1 % (3.8-10.2); NEUT % 88.1 % (42.8-82.8); PLATELET COUNT 190 K/MM3 (134-434); RBC 4.59 M/mm3 (3.60-5.2); RDW 13.9 % (11.6-15.6); WHITE BLOOD COUNT 10.2 K/mm3 (4.0-10.0)
[2019-01-15 07:50] LABS: ALBUMIN 3.7 g/dl (3.4-5.0); BILIRUBIN,TOTAL 0.2 mg/dL (0.2-1); BLOOD UREA NITROGEN 18.8 mg/dL (7-18); CALCIUM 9.6 mg/dL (8.5-10.1); CREATININE 1.1 mg/dL (0.55-1.3); MAGNESIUM 2.1 mg/dL (1.8-2.4); PHOSPHOROUS 3.2 mg/dL (2.5-4.9); POTASSIUM 4.2 mmol/L (3.5-5.1); TOT PROT 8.2 g/dl (6.4-8.2)
[2019-01-15] MEDS ORDERED: ONDANSETRON 4 MG/2 ML VIAL IVPUSH PRN (08:03)
[2019-01-15] MEDS ORDERED: INSULIN (NOVOLOG) ASPART 100 UNITS/ML 10ML VIAL ONE (08:29)
[2019-01-15] MEDS: FAMOTIDINE 20 MG/50 ML IVPB 20 MG/50 ML MG IVPB SCH ×2 (09:07→21:13)
[2019-01-15] MEDS: amLODIPine BESYLATE 2.5 MG TABLET (FP) PO SCH (09:07)
[2019-01-15] MEDS: MORPHINE SULFATE 2 MG/ML VIAL IVPUSH PRN ×2 (15:35→23:26)
--- NOTE | 2019-01-15 19:04 | PN ---
Progress Note (short form) - Note Progress Note: Patient is improving, stated that she was able to control her urine, symptoms improving but retaining urine. Vital Signs Temperature 98.2 F 01/15/19 14:44 Pulse Rate 61 01/15/19 14:44 Respiratory Rate 20 01/15/19 14:44 Blood Pressure 125/93 01/15/19 14:44 O2 Sat by Pulse Oximetry (%) 96 01/15/19 09:00 GENERAL: Awake, alert, and fully oriented, in mild distress. EYES:PEERLA: EOMI no scleral icterus NECK: no JVD; no lymphadenoapthy LUNGS: CTA B/L; no rales, rhonchi or wheezing HEART: Regular rate and rhythm, normal S1 and S2 without murmur, rub or gallop. ABDOMEN: Soft, nontender, not distended, normoactive bowel sounds, no guarding, no rebound, no masses. No hepatomegaly or splenomegaly. MUSCULOSKELETAL: Normal range of motion at all joints. No bony deformities or tenderness. No CVA tenderness. EXTREMITIES: warml well-perfused no clubbing/cyansois or edema NEUROLOGICAL: RUE/LUE: 5/5 srength B/L; RLE: 3/5 strength diminished sensation ; LLE: 4/5 strength sensation intact 1+ DTR"S B/L PSYCHIATRIC: Cooperative. Good eye contact. Appropriate mood and affect. SKIN: Warm, dry, normal turgor, no rashes or lesions noted, normal capillary refill. CBCD WBC 10.2 K/mm3 (4.0-10.0) H 01/15/19 05:25 RBC 4.59 M/mm3 (3.60-5.2) 01/15/19 05:25 Hgb 12.7 GM/dL (10.7-15.3) 01/15/19 05:25 Hct 38.6 % (32.4-45.2) 01/15/19 05:25 MCV 84.2 fl (80-96) 01/15/19 05:25 MCHC 32.9 g/dl (32.0-36.0) 01/15/19 05:25 RDW 13.9 % (11.6-15.6) 01/15/19 05:25 Plt Count 190 K/MM3 (134-434) 01/15/19 05:25 MPV 10.5 fl (7.5-11.1) 01/15/19 05:25 CMP Sodium 140 mmol/L (136-145) 01/15/19 05:25 Potassium 4.2 mmol/L (3.5-5.1) 01/15/19 05:25 Chloride 105 mmol/L (98-107) 01/15/19 05:25 Carbon Dioxide 29 mmol/L (21-32) 01/15/19 05:25 Anion Gap 7 MMOL/L (8-16) L 01/15/19 05:25 BUN 18.8 mg/dL (7-18) H 01/15/19 05:25 Creatinine 1.1 mg/dL (0.55-1.3) 01/15/19 05:25 Random Glucose 134 mg/dL (74-106) H 01/15/19 05:25 Calcium 9.6 mg/dL (8.5-10.1) 01/15/19 05:25 Total Bilirubin 0.2 mg/dL (0.2-1) 01/15/19 05:25 AST 17 U/L (15-37) 01/15/19 05:25 ALT 32 U/L (13-61) 01/15/19 05:25 Alkaline Phosphatase 152 U/L (45-117) H 01/15/19 05:25 Total Protein 8.2 g/dl (6.4-8.2) 01/15/19 05:25 Albumin 3.7 g/dl (3.4-5.0) 01/15/19 05:25 CARDIAC ENZYMES Creatine Kinase 152 U/L (26-192) 01/14/19 12:30 Troponin I < 0.02 ng/ml (0.00-0.05) 01/14/19 12:30 Current Medications Generic Name Dose Route Start Last Admin Trade Name Freq PRN Reason Stop Dose Admin Amlodipine Besylate 2.5 mg 01/14/19 21:00 01/15/19 09:07 Norvasc - PO 2.5 mg DAILY PRANAY Administration Dexamethasone Sodium Phosphate 6 mg 01/14/19 17:15 01/15/19 16:56 Decadron Injection - IVPB 6 mg Q6H PRANAY Administration Docusate Sodium 200 mg 01/15/19 22:00 Colace - PO HS PRANAY Famotidine/Sodium Chloride 20 mg in 50 mls @ 100 mls/hr 01/14/19 22:00 09:07 Pepcid 20 Mg Premixed Ivpb - IVPB 100 mls/hr BID PRANAY Administration Insulin Aspart 1 vial 01/14/19 21:15 01/15/19 16:55 Novolog Vial Sliding Scale - SQ Not Given [facility] Protocol Morphine Sulfate 2 mg 01/15/19 12:12 01/15/19 15:35 Morphine Sulfate IVPUSH 2 mg Q4H PRN Administration PAIN LEVEL 6-10 Ondansetron HCl 4 mg 01/15/19 08:03 Zofran Injection IVPUSH Q6H PRN NAUSEA Thoracic CT: No compression fx or sublaxation noted. CT scan done showing no evidence of cord compression ASSESSMENT AND PLAN: Patient is a 53 y/o female with PMH of HTN, HLD, pre-DM, possible MS, TIA X2 presents to the ED with complaints of lower leg weakness (from T5 down) with worsening symptoms today. #Acute LE weakness with urinary and fecal incontinence: s/p MRI of thoracic and Lspine , discussed with , patient is on Decadron 6mg IV q6h, s/p 1gm of solu medrol in ED. sliding scale with coverage since the patient is on high steroid dose. neuro checks , physical therapy. # HTN: not on any medications currently. sodium controlled diet DVT PPX: Heparin sq Visit type - Emergency Visit Emergency Visit: Yes ED Registration Date: 01/14/19 Care time: The patient presented to the Emergency Department on the above date and was hospitalized for further evaluation of their emergent condition. - New Patient This patient is new to me today: No - Critical Care Critical Care patient: No - Discharge Referral Referred to [facility] No
[2019-01-15] MEDS: DOCUSATE SODIUM 100 MG CAPSULE (FP) PO SCH (21:09)
[2019-01-16] MEDS: DEXAMETHASONE SOD PHOSPHATE 10 MG/1 ML VIAL IVPB SCH ×4 (06:19→23:31)
[2019-01-16] MEDS: INSULIN SLIDING SCALE (NOVOLOG) 1 VIAL SQ SCH ×3 (06:26→17:35)
--- NOTE | 2019-01-16 09:10 | PN ---
Teaching Attending Note Name of Resident: Nicole Cui ATTENDING PHYSICIAN STATEMENT I saw and evaluated the patient. I reviewed the resident's note and discussed the case with the resident. I agree with the resident's findings and plan as documented. SUBJECTIVE: Patient is improving better than before OBJECTIVE: Vital Signs Temperature 97.6 F 01/16/19 06:00 Pulse Rate 53 L 01/16/19 06:00 Respiratory Rate 18 01/16/19 06:00 Blood Pressure 134/70 01/16/19 06:00 O2 Sat by Pulse Oximetry (%) 96 01/15/19 09:00 GENERAL: Awake, alert, and fully oriented, in NAD . EYES:PEERLA: EOMI no scleral icterus NECK: no JVD; no lymphadenoapthy LUNGS: CTA B/L; no rales, rhonchi or wheezing HEART: Regular rate and rhythm, normal S1 and S2 without murmur, rub or gallop. ABDOMEN: Soft, nontender, not distended, normoactive bowel sounds, no guarding, no rebound, no masses. No hepatomegaly or splenomegaly. MUSCULOSKELETAL: Normal range of motion at all joints. No bony deformities or tenderness. No CVA tenderness. EXTREMITIES: warml well-perfused no clubbing/cyansois or edema NEUROLOGICAL: RUE/LUE: 5/5 srength B/L; RLE: 3/5 strength diminished sensation ; LLE: 4/5 strength sensation intact 1+ DTR B/L PSYCHIATRIC: Cooperative. Good eye contact. Appropriate mood and affect. SKIN: Warm, dry, normal turgor, no rashes or lesions noted, normal capillary refill. CBCD WBC 10.2 K/mm3 (4.0-10.0) H 01/15/19 05:25 RBC 4.59 M/mm3 (3.60-5.2) 01/15/19 05:25 Hgb 12.7 GM/dL (10.7-15.3) 01/15/19 05:25 Hct 38.6 % (32.4-45.2) 01/15/19 05:25 MCV 84.2 fl (80-96) 01/15/19 05:25 MCHC 32.9 g/dl (32.0-36.0) 01/15/19 05:25 RDW 13.9 % (11.6-15.6) 01/15/19 05:25 Plt Count 190 K/MM3 (134-434) 01/15/19 05:25 MPV 10.5 fl (7.5-11.1) 01/15/19 05:25 CMP Sodium 140 mmol/L (136-145) 01/15/19 05:25 Potassium 4.2 mmol/L (3.5-5.1) 01/15/19 05:25 Chloride 105 mmol/L (98-107) 01/15/19 05:25 Carbon Dioxide 29 mmol/L (21-32) 01/15/19 05:25 Anion Gap 7 MMOL/L (8-16) L 01/15/19 05:25 BUN 18.8 mg/dL (7-18) H 01/15/19 05:25 Creatinine 1.1 mg/dL (0.55-1.3) 01/15/19 05:25 Random Glucose 134 mg/dL (74-106) H 01/15/19 05:25 Calcium 9.6 mg/dL (8.5-10.1) 01/15/19 05:25 Total Bilirubin 0.2 mg/dL (0.2-1) 01/15/19 05:25 AST 17 U/L (15-37) 01/15/19 05:25 ALT 32 U/L (13-61) 01/15/19 05:25 Alkaline Phosphatase 152 U/L (45-117) H 01/15/19 05:25 Total Protein 8.2 g/dl (6.4-8.2) 01/15/19 05:25 Albumin 3.7 g/dl (3.4-5.0) 01/15/19 05:25 CARDIAC ENZYMES Creatine Kinase 152 U/L (26-192) 01/14/19 12:30 Troponin I < 0.02 ng/ml (0.00-0.05) 01/14/19 12:30 Current Medications Generic Name Dose Route Start Last Admin Trade Name Freq PRN Reason Stop Dose Admin Amlodipine Besylate 2.5 mg 01/14/19 21:00 01/15/19 09:07 Norvasc - PO 2.5 mg DAILY PRANAY Administration Dexamethasone Sodium Phosphate 6 mg 01/14/19 17:15 01/16/19 06:19 Decadron Injection - IVPB 6 mg Q6H PRANAY Administration Docusate Sodium 200 mg 01/15/19 22:00 01/15/19 21:09 Colace - PO 200 mg HS PRANAY Administration Famotidine/Sodium Chloride 20 mg in 50 mls @ 100 mls/hr 01/14/19 22:00 21:13 Pepcid 20 Mg Premixed Ivpb - IVPB 100 mls/hr BID PRANAY Administration Insulin Aspart 1 vial 01/14/19 21:15 01/16/19 06:26 Novolog Vial Sliding Scale - SQ Not Given TIDAC [facility] Protocol Morphine Sulfate 2 mg 01/15/19 12:12 01/15/19 23:26 Morphine Sulfate IVPUSH 2 mg Q4H PRN Administration PAIN LEVEL 6-10 Ondansetron HCl 4 mg 01/15/19 08:03 Zofran Injection IVPUSH Q6H PRN NAUSEA Thoracic CT: No compression fx or sublaxation noted. CT scan done showing no evidence of cord compression MRI: DDD; lumbosacral spine predominant L5-S1 with narrowing L5-S1 disc space L5-S1 herniation lateralization toward the left, obliterating the left recess mass effect on the left [id number] root L4-5 broad based bulging annulus indenting slightly on the right and left L5 nerve roots with degenerative changes articular facets. ASSESSMENT AND PLAN: Patient is a 53 y/o female with PMH of HTN, HLD, pre-DM, possible MS, TIA X2 presents to the ED with complaints of lower leg weakness (from T5 down) with worsening symptoms today. #Acute LE weakness with urinary and fecal incontinence: improving , MRI of thoracic and Lspine result as above, neuro surgery on the case and on the case. continue Decadron 6mg IV q6h, given 1gm of soul medrol in ED. sliding scale with coverage since the patient is on high steroid dose. neuro checks, physical therapy. Patient stated that she is improving # HTN: stable , on Norvasc 2.5mg daily ,sodium controlled diet DVT PPX: Lovenox
[2019-01-16] MEDS: FAMOTIDINE 20 MG/50 ML IVPB 20 MG/50 ML MG IVPB SCH ×2 (11:22→21:20)
[2019-01-16] MEDS: amLODIPine BESYLATE 2.5 MG TABLET (FP) PO SCH (11:22)
[2019-01-16] MEDS: MORPHINE SULFATE 2 MG/ML VIAL IVPUSH PRN (11:23)
--- NOTE | 2019-01-16 12:49 | PN ---
Physical Exam: SUBJECTIVE: Patient seen and examined at bedside. In good spirits, improved sensation in LLE. OBJECTIVE: Vital Signs Period Temp Pulse Resp BP Sys/Rice Pulse Ox Last 24 Hr 97.6 F-98.2 F 53-61 18-20 125-134/68-93 GENERAL: The patient is pleasant. in NAD HEAD: Normal with no signs of trauma. EYES: PERRL, extraocular movements intact, sclera anicteric, conjunctiva clear. ENT: Ears normal, nares patent, oropharynx clear without exudates, moist mucous membranes. NECK: Trachea midline, supple. LUNGS: CTA b/l HEART: Regular rate and rhythm, S1, S2 without murmur, rub or gallop. ABDOMEN: Soft, obese, nontender, nondistended, normoactive bowel sounds EXTREMITIES: 2+ pt pulses, no edema. BACK: +TTP lumbar paraspinal NEUROLOGICAL: Cranial nerves II through XII grossly intact. +sensation in LE intact however c/o numbness, 4/5 motor strength RLE, LLE. PSYCH: Normal mood, normal affect. SKIN: Warm, dry : +greenfield, draining yellow urine Laboratory Results 01/15/19 01/15/19 01/15/19 11:04 16:54 22:17 POC Glucometer 172 148 177 01/16/19 06:26 POC Glucometer [address]: +7.9cm RUQ mass, L5=S1 degenerative disc dz, L5-S1 disc herniation, sai stenosis, L4-L5 canal stenosis. ASSESSMENT/PLAN: 53 y/o F with PMH HTN, HLD, possible MS, TIA x 2, who presented for lower extremity weakness. #LE weakness -possible 2/2 MS -c/w decadron -on morphine for pain control -neuro on case, neurosx to see pt -ISS while pt on steroids -PT #Constipation -c/w colace #HTN- controlled -c/w amlodipine #F/E/N not requiring IVF continue to follow lytes na controlled diet #PPX DVT: SCD's #Dispo cont'd monitoring on med-surg PT Visit type - Emergency Visit Emergency Visit: No - New Patient This patient is new to me today: Yes Date on this admission: 01/16/19 - Critical Care Critical Care patient: No
[2019-01-16] MEDS: DOCUSATE SODIUM 100 MG CAPSULE (FP) PO SCH (21:20)
[2019-01-16] MEDS: HEPARIN NA (PORCINE) 5,000 UNITS/ML 1ML VIAL SQ SCH (21:22)
[2019-01-17] MEDS: DEXAMETHASONE SOD PHOSPHATE 10 MG/1 ML VIAL IVPB SCH ×4 (04:40→22:26)
[2019-01-17] MEDS: INSULIN SLIDING SCALE (NOVOLOG) 1 VIAL SQ SCH ×3 (06:46→18:09)
[2019-01-17] MEDS: HEPARIN NA (PORCINE) 5,000 UNITS/ML 1ML VIAL SQ SCH ×3 (06:46→21:02)
[2019-01-17] MEDS ORDERED: INSULIN (LEVEMIR) 100 UNITS/ML UNITS SQ ONE (06:51)
[2019-01-17] MEDS ORDERED: INSULIN (NOVOLOG) ASPART 100 UNITS/ML 10ML VIAL ONE (06:51)
--- NOTE | 2019-01-17 08:22 | PN ---
Progress Note (short form) - Note Progress Note: events noted Chart reviewed Patient still hospital Still with the leg weakness No urinary or fecal incontinence Await the MRI of thoracic and the lumbosacral spine to rule out spinal cord lesion Problem List - Problems (1) Multiple sclerosis Code(s): G35 - MULTIPLE SCLEROSIS
[2019-01-17] MEDS: FAMOTIDINE 20 MG/50 ML IVPB 20 MG/50 ML MG IVPB SCH ×2 (10:02→21:02)
[2019-01-17] MEDS: amLODIPine BESYLATE 2.5 MG TABLET (FP) PO SCH (10:02)
[2019-01-17] MEDS ORDERED: ACETAMINOPHEN 325 MG TABLET (FP) PO PRN (10:53)
[2019-01-17] MEDS: ACETAMINOPHEN 325 MG TABLET (FP) PO PRN (11:24)
--- NOTE | 2019-01-17 11:47 | CON.GU ---
Consult Consult Specialty:: Urology Reason for Consultation:: Left renal mass - History of Present Illness Chief Complaint: weakness. Mul neurologic symptoms - History Source History Provided By: Patient, Medical Record - Past Medical History ...: No (hysterectomy 2009) - Alcohol/Substance Use Hx Alcohol Use: No - Smoking History Smoking history: Never smoked Have you smoked in the past 12 months: No Aproximately how many cigarettes per day: 0 Home Medications - Allergies Allergies/Adverse Reactions: Allergies Allergy/AdvReac Type Severity Reaction Status Date / Time No Known Allergies Allergy Verified 01/14/19 10:38 Physical Exam- Vital Signs: Vital Signs Temperature 99.1 F 01/17/19 08:19 Pulse Rate 58 L 01/17/19 08:19 Respiratory Rate 18 01/17/19 08:23 Blood Pressure 131/98 01/17/19 08:19 O2 Sat by Pulse Oximetry (%) 100 01/17/19 08:23 Gastrointestinal: Yes: WNL, Normal Bowel Sounds, Soft Renal/: Yes: WNL Labs: CBC, BMP 01/15/19 05:25 01/15/19 05:25 Imaging - Results Cat Scan: Report Reviewed Problem List - Problems (1) Renal mass, left Assessment/Plan: 53 yo female currently being evaluated for multiple neuologic symptoms found to have incidental left renal mass 7.[address] w and w/o contrast to evaluate w proper imaging Code(s): N28.89 - OTHER SPECIFIED DISORDERS OF KIDNEY AND URETER
--- NOTE | 2019-01-17 13:50 | CONSULT ---
Consult - text type - Consultation Consultation Note: NEUROSURGERY CONSULTATION Cassi Temple is a 53 year old female who was in her usual state of good ruby until last week when she noted progressive onset of numbness below the T4/T5 levels. She denies any antecedent accident or injury which may have been causative although she recalls going to a water park the day prior to onset of symptoms. The patient has recently received a provisional diagnosis of Demyelinating disease/Multiple Sclerosis in outpatient evaluation by Dr. Matheus Saleem. Although she has had a sense of Right greater than Left leg weakness, she was reported to be able to ambulate. She has been constipated since admission and had urinary difficulties. She denies low back pain or lower extremity radicular pain. A greenfield catheter was placed and Lumbar MRI demonstrates degenerative changes with a disc herniation at L5S1 which is eccentric to the Left. Thoracic CT and MRI do not reveal pathology which may account for her symptoms. The Lumbar pathology does not appear to be sufficient to result in a cauda equina syndrome and she is not manifesting clear symptoms which would likely be associated with them. At this point, Acute Neurosurgical intervention does not appear to be indicated and her symptoms do not appear to be associated with the Lumbar pathology. Differential diagnosis for her sensory loss may include: Transverse Myelitis, Demyelination/Multiple Sclerosis, paraneoplastic syndrome associated with her Renal lesion.
--- NOTE | 2019-01-17 15:38 | PN ---
Progress Note (short form) - Note Progress Note: events noted Chart review notes I reviewed all the images of the thoracic and the lumbosacral spine MRI No evidence of cord compression No evidence of thoracic myelitis Disc bulge noted at L4-L5 right more than left with no evidence of foraminal stenosis Seen by neurosurgery Agree to the neurosurgical assessment and evaluation Patient is not a candidate at this point for any neurosurgical intervention MRI of the thoracic spine revealed 7.9 mass on the kidney Await CAT scan of the abdomen with and without contrast Repeat MRI of the brain with contrast for multiple sclerosis could be done as an outpatient Patient will need a spinal tap that we will arrange as an outpatient Problem List - Problems (1) Multiple sclerosis Code(s): G35 - MULTIPLE SCLEROSIS
--- NOTE | 2019-01-17 17:15 | PN ---
Physical Exam: SUBJECTIVE: Patient seen and examined at bedside. No acute events. OBJECTIVE: Vital Signs Period Temp Pulse Resp BP Sys/Rice Pulse Ox Last 24 Hr 97.7 F-99.1 F 44-88 17-20 131-153/76-98 100-100 GENERAL: The patient is awake, alert, and fully oriented, in no acute distress. HEAD: Normal with no signs of trauma. EYES: PERRL, extraocular movements intact, sclera anicteric, conjunctiva clear. No ptosis. ENT: Ears normal, nares patent, oropharynx clear without exudates, moist mucous membranes. NECK: supple. LUNGS: Breath sounds equal, clear to auscultation bilaterally, no wheezes, no crackles, no accessory muscle use. HEART: Regular rate and rhythm, S1, S2 without murmur, rub or gallop. ABDOMEN: Soft, nondistended, no guarding, impaired sensation from breasts down ( T4-T5 below), tough to assess for tenderness. EXTREMITIES: warm, well-perfused, no edema. NEUROLOGICAL: 3/5 right sided leg extension and plantarflexion/dorsiflexion, 4/ 5 on left side. Impaired sensation b/l on waist and abdomen. Normal speech, gait not observed. PSYCH: Normal mood, normal affect. SKIN: Warm, dry, no rashes or lesions noted Laboratory Results - last 24 hr 01/16/19 01/16/19 01/17/19 12:28 17:35 06:33 POC Glucometer 156 178 134 01/17/19 12:51 POC Glucometer 103 Active Medications Generic Name Dose Route Start Last Admin Trade Name Oleksandrq PRN Reason Stop Dose Admin Acetaminophen 650 mg 01/17/19 11:16 01/17/19 11:24 Tylenol - PO 650 mg Q6H PRN Administration PAIN LEVEL 1-5 Amlodipine Besylate 2.5 mg 01/14/19 21:00 01/17/19 10:02 Norvasc - PO 2.5 mg DAILY PRANAY Administration Dexamethasone Sodium Phosphate 6 mg 01/14/19 17:15 01/17/19 12:40 Decadron Injection - IVPB 6 mg Q6H PRANAY Administration Docusate Sodium 200 mg 01/15/19 22:00 01/16/19 21:20 Colace - PO 200 mg HS PRANAY Administration Heparin Sodium (Porcine) 5,000 unit 01/16/19 22:00 01/17/19 15:23 Heparin - SQ 5,000 unit TID PRANAY Administration Famotidine/Sodium Chloride 20 mg in 50 mls @ 100 mls/hr 01/14/19 22:00 10:02 Pepcid 20 Mg Premixed Ivpb - IVPB 100 mls/hr BID PRANAY Administration Insulin Aspart 1 vial 01/14/19 21:15 01/17/19 12:41 Novolog Vial Sliding Scale - SQ Not Given TIDAC [facility] Protocol Morphine Sulfate 2 mg 01/15/19 12:12 01/16/19 11:23 Morphine Sulfate IVPUSH 2 mg Q4H PRN Administration PAIN LEVEL 6-10 Ondansetron HCl 4 mg 01/15/19 08:03 Zofran Injection IVPUSH Q6H PRN NAUSEA ASSESSMENT/PLAN: 53 y/o F with PMH HTN, HLD, possible MS, TIA x 2, who presented for lower extremity weakness. #LE weakness -possible 2/2 MS -c/w decadron -on morphine for pain control -Neuro (Dr. Campbell)- no evidence of cord compression or thoracic myelitis, disc bulge of L5-S1 on right more than left side, no foraminal stenosis. Agrees w Dr Guo's assesment. Repeat MRI of brain with contrast for MS could be done as o/p. Pt will need spinal tap as o/p. -Neurosx (Dr. Guo)- does not think pt is a surgical candidate at this time. Does not believe this disc bulge was cause of bowel and bladder incontinence, does not think its cauda equina syndrome. Thinks her sensory loss could be from : Transverse Myelitis, Demyelination/Multiple Sclerosis, paraneoplastic syndrome associated with her Renal lesion. -ISS while pt on steroids -PT #Renal Mass - Dr. Liriano (urology)- rt renal mass f/u CT of abdomen. #Constipation -c/w colace #HTN- controlled -c/w amlodipine #F/E/N not requiring IVF continue to follow lytes na controlled diet #PPX DVT: SCD's #Dispo cont'd monitoring on med-surg PT Visit type - Emergency Visit Emergency Visit: No - New Patient This patient is new to me today: Yes Date on this admission: 01/17/19 - Critical Care Critical Care patient: No - Discharge Referral Referred to [facility] No ATTENDING PHYSICIAN STATEMENT I saw and evaluated the patient. I reviewed the resident's note and discussed the case with the resident. I agree with the resident's findings and plan as documented. SUBJECTIVE: OBJECTIVE: ASSESSMENT AND PLAN:
--- NOTE | 2019-01-17 17:46 | PN ---
Teaching Attending Note Name of Resident: Homero Borjas ATTENDING PHYSICIAN STATEMENT I saw and evaluated the patient. I reviewed the resident's note and discussed the case with the resident. I agree with the resident's findings and plan as documented. SUBJECTIVE: Patient is feeling better but continues to have no sensation between her waist line and above her thigh area. had a minimal physical therapy today. OBJECTIVE: Vital Signs Temperature 98.2 F 01/17/19 15:34 Pulse Rate 49 L 01/17/19 15:34 Respiratory Rate 20 01/17/19 15:34 Blood Pressure 145/88 01/17/19 15:34 O2 Sat by Pulse Oximetry (%) 100 01/17/19 08:23 GENERAL: Awake, alert, and fully oriented, in NAD . EYES:PEERLA: EOMI no scleral icterus NECK: no JVD; no lymphadenoapthy LUNGS: CTA B/L; no rales, rhonchi or wheezing HEART: Regular rate and rhythm, normal S1 and S2 without murmur, rub or gallop. ABDOMEN: Soft, nontender, not distended, normoactive bowel sounds, no guarding, no rebound, no masses. No hepatomegaly or splenomegaly. MUSCULOSKELETAL: Normal range of motion at all joints. No bony deformities or tenderness. No CVA tenderness. EXTREMITIES: warml well-perfused no clubbing/cyansois or edema NEUROLOGICAL: RUE/LUE: 5/5 srength B/L; RLE: 3/5 strength diminished sensation ; LLE: 4/5 strength sensation intact 1+ DTR B/L, no sensation below waist line. PSYCHIATRIC: Cooperative. Good eye contact. Appropriate mood and affect. SKIN: Warm, dry, normal turgor, no rashes or lesions noted, normal capillary refill. CBCD WBC 10.2 K/mm3 (4.0-10.0) H 01/15/19 05:25 RBC 4.59 M/mm3 (3.60-5.2) 01/15/19 05:25 Hgb 12.7 GM/dL (10.7-15.3) 01/15/19 05:25 Hct 38.6 % (32.4-45.2) 01/15/19 05:25 MCV 84.2 fl (80-96) 01/15/19 05:25 MCHC 32.9 g/dl (32.0-36.0) 01/15/19 05:25 RDW 13.9 % (11.6-15.6) 01/15/19 05:25 Plt Count 190 K/MM3 (134-434) 01/15/19 05:25 MPV 10.5 fl (7.5-11.1) 01/15/19 05:25 CMP Sodium 140 mmol/L (136-145) 01/15/19 05:25 Potassium 4.2 mmol/L (3.5-5.1) 01/15/19 05:25 Chloride 105 mmol/L (98-107) 01/15/19 05:25 Carbon Dioxide 29 mmol/L (21-32) 01/15/19 05:25 Anion Gap 7 MMOL/L (8-16) L 01/15/19 05:25 BUN 18.8 mg/dL (7-18) H 01/15/19 05:25 Creatinine 1.1 mg/dL (0.55-1.3) 01/15/19 05:25 Random Glucose 134 mg/dL (74-106) H 01/15/19 05:25 Calcium 9.6 mg/dL (8.5-10.1) 01/15/19 05:25 Total Bilirubin 0.2 mg/dL (0.2-1) 01/15/19 05:25 AST 17 U/L (15-37) 01/15/19 05:25 ALT 32 U/L (13-61) 01/15/19 05:25 Alkaline Phosphatase 152 U/L (45-117) H 01/15/19 05:25 Total Protein 8.2 g/dl (6.4-8.2) 01/15/19 05:25 Albumin 3.7 g/dl (3.4-5.0) 01/15/19 05:25 CARDIAC ENZYMES Creatine Kinase 152 U/L (26-192) 01/14/19 12:30 Troponin I < 0.02 ng/ml (0.00-0.05) 01/14/19 12:30 Current Medications Generic Name Dose Route Start Last Admin Trade Name Freq PRN Reason Stop Dose Admin Acetaminophen 650 mg 01/17/19 11:16 01/17/19 11:24 Tylenol - PO 650 mg Q6H PRN Administration PAIN LEVEL 1-5 Amlodipine Besylate 2.5 mg 01/14/19 21:00 01/17/19 10:02 Norvasc - PO 2.5 mg DAILY PRANAY Administration Dexamethasone Sodium Phosphate 6 mg 01/14/19 17:15 01/17/19 12:40 Decadron Injection - IVPB 6 mg Q6H PRANAY Administration Docusate Sodium 200 mg 01/15/19 22:00 01/16/19 21:20 Colace - PO 200 mg HS PRANAY Administration Heparin Sodium (Porcine) 5,000 unit 01/16/19 22:00 01/17/19 15:23 Heparin - SQ 5,000 unit TID PRANAY Administration Famotidine/Sodium Chloride 20 mg in 50 mls @ 100 mls/hr 01/14/19 22:00 10:02 Pepcid 20 Mg Premixed Ivpb - IVPB 100 mls/hr BID PRANAY Administration Insulin Aspart 1 vial 01/14/19 21:15 01/17/19 12:41 Novolog Vial Sliding Scale - SQ Not Given TIDAC [facility] Protocol Morphine Sulfate 2 mg 01/15/19 12:12 01/16/19 11:23 Morphine Sulfate IVPUSH 2 mg Q4H PRN Administration PAIN LEVEL 6-10 Ondansetron HCl 4 mg 01/15/19 08:03 Zofran Injection IVPUSH Q6H PRN NAUSEA Thoracic CT: No compression fx or sublaxation noted. CT scan done showing no evidence of cord compression MRI: On coronal image #11 and #12 there is a large solid lesion upper pole right kidney measuring 7.5cm malignancy can't be excluded. DDD; lumbosacral spine predominant L5-S1 with narrowing L5-S1 disc space L5-S1 herniation lateralization toward the left, obliterating the left recess mass effect on the left [id number] root L4-5 broad based bulging annulus indenting slightly on the right and left L5 nerve roots with degenerative changes articular facets. ASSESSMENT AND PLAN: Patient is a 53 y/o female with PMH of HTN, HLD, pre-DM, possible MS, TIA X2 presents to the ED with complaints of lower leg weakness (from T5 down) with worsening symptoms. # Large right kidney mass of 7.9cm can't r/o malignancy ; consulted, patient is going for Ct of abdomen and pelvis with and without IV contrast, follow the CT result, Oncology consulted dr. Grier #Acute LE weakness with urinary and fecal incontinence: improving , MRI of thoracic and Lspine result as above, neuro surgery on the case and appreciated , no neurosurgical intervention is needed. charissa't r/o transverse myelitis, exacerbation of MS, paraneoplastic syndrome can't be ruled out. on the case. continue Decadron 6mg IV q6h, given 1gm of soul medrol in ED. sliding scale with coverage since the patient is on high steroid dose. neuro checks, physical therapy. Patient stated that she is improving # HTN: stable , on Norvasc 2.5mg daily ,sodium controlled diet DVT PPX: Lovenox
[2019-01-17] MEDS: MORPHINE SULFATE 2 MG/ML VIAL IVPUSH PRN (21:02)
[2019-01-17] MEDS: DOCUSATE SODIUM 100 MG CAPSULE (FP) PO SCH (21:02)
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
[2019-01-18] MEDS: DEXAMETHASONE SOD PHOSPHATE 10 MG/1 ML VIAL IVPB SCH ×4 (06:07→23:05)
[2019-01-18] MEDS: HEPARIN NA (PORCINE) 5,000 UNITS/ML 1ML VIAL SQ SCH ×3 (06:08→21:41)
[2019-01-18] MEDS: INSULIN SLIDING SCALE (NOVOLOG) 1 VIAL SQ SCH ×3 (06:38→16:35)
[2019-01-18 07:49] LABS: BASO % 0.1 % (0-2.0); HEMATOCRIT 36.7 % (32.4-45.2); HEMOGLOBIN 12.2 GM/dL (10.7-15.3); LYMPH % 11.5 % (8-40); MCH 27.7 pg (25.7-33.7); MCHC 33.2 g/dl (32.0-36.0); MEAN CELL VOLUME 83.4 fl (80-96); MEAN PLT VOLUME 10.2 fl (7.5-11.1); MONO % 2.7 % (3.8-10.2); NEUT % 85.7 % (42.8-82.8); PLATELET COUNT 165 K/MM3 (134-434); RDW 13.9 % (11.6-15.6); WHITE BLOOD COUNT 8.9 K/mm3 (4.0-10.0)
[2019-01-18 07:51] LABS: ALBUMIN 3.2 g/dl (3.4-5.0); BILIRUBIN,TOTAL 0.4 mg/dL (0.2-1); BLOOD UREA NITROGEN 21.4 mg/dL (7-18); CALCIUM 8.8 mg/dL (8.5-10.1); CREATININE 0.9 mg/dL (0.55-1.3); TOT PROT 7.4 g/dl (6.4-8.2)
[2019-01-18] MEDS ORDERED: GLYCERIN 1 RECTAL SUPPOSITORY, ADULT RC ONE (08:30)
[2019-01-18] MEDS: FAMOTIDINE 20 MG/50 ML IVPB 20 MG/50 ML MG IVPB SCH ×2 (10:37→21:41)
[2019-01-18] MEDS: amLODIPine BESYLATE 2.5 MG TABLET (FP) PO SCH (12:36)
--- NOTE | 2019-01-18 14:03 | PN ---
Physical Exam: SUBJECTIVE: Patient seen and examined at the bedside this AM. No acute events overnight. OBJECTIVE: Vital Signs Period Temp Pulse Resp BP Sys/Rice Pulse Ox Last 24 Hr 97.7 F-98.2 F 45-84 17-20 142-149/68-88 100 GENERAL: The patient is awake, alert, and fully oriented, in no acute distress. HEAD: Normal with no signs of trauma. EYES: PERRL, extraocular movements intact, sclera anicteric, conjunctiva clear. No ptosis. ENT: Ears normal, nares patent, oropharynx clear without exudates, moist mucous membranes. NECK: supple. LUNGS: Breath sounds equal, clear to auscultation bilaterally, no wheezes, no crackles, no accessory muscle use. HEART: Regular rate and rhythm, S1, S2 without murmur, rub or gallop. ABDOMEN: Soft, no sensation from nipple down so tough to assess, no bowel sounds , no guarding, no rebound. EXTREMITIES: 2+ pulses, warm, well-perfused, no edema. NEUROLOGICAL: 3/5 right leg and 4/5 left leg motion and sensation intact below the hip b/l but no sensation from T4 down to L3/L4 b/l. PSYCH: Normal mood, normal affect. SKIN: Warm, dry, normal turgor, no rashes or lesions noted Laboratory Results - last 24 hr 01/17/19 01/18/19 01/18/19 18:06 06:36 06:52 WBC 8.9 RBC 4.40 Hgb 12.2 Hct 36.7 MCV 83.4 MCH 27.7 MCHC 33.2 RDW 13.9 Plt Count 165 MPV 10.2 Absolute Neuts (auto) 7.7 Neutrophils % 85.7 H Lymphocytes % 11.5 Monocytes % 2.7 L D Eosinophils % 0.0 D Basophils % 0.1 D Nucleated RBC % 0 Sodium Potassium Chloride Carbon Dioxide Anion Gap BUN Creatinine Est GFR (CKD-EPI)AfAm Est GFR (CKD-EPI)NonAf POC Glucometer 167 126 Random Glucose Calcium Total Bilirubin AST ALT Alkaline Phosphatase Total Protein Albumin 01/18/19 01/18/19 06:52 11:30 WBC RBC Hgb Hct MCV MCH MCHC RDW Plt Count MPV Absolute Neuts (auto) Neutrophils % Lymphocytes % Monocytes % Eosinophils % Basophils % Nucleated RBC % Sodium 139 Potassium 4.0 Chloride 102 Carbon Dioxide 29 Anion Gap 8 BUN 21.4 H Creatinine 0.9 Est GFR (CKD-EPI)AfAm 84.61 Est GFR (CKD-EPI)NonAf 73.00 POC Glucometer 141 Random Glucose 117 H Calcium 8.8 Total Bilirubin 0.4 AST 10 L ALT 27 Alkaline Phosphatase 121 H Total Protein 7.4 Albumin 3.2 L Active Medications Generic Name Dose Route Start Last Admin Trade Name Freq PRN Reason Stop Dose Admin Acetaminophen 650 mg 01/17/19 11:16 01/17/19 11:24 Tylenol - PO 650 mg Q6H PRN Administration PAIN LEVEL 1-5 Amlodipine Besylate 2.5 mg 01/14/19 21:00 01/18/19 12:36 Norvasc - PO 2.5 mg DAILY PRANAY Administration Dexamethasone Sodium Phosphate 6 mg 01/14/19 17:15 01/18/19 12:36 Decadron Injection - IVPB 6 mg Q6H PRANAY Administration Docusate Sodium 200 mg 01/15/19 22:00 01/17/19 21:02 Colace - PO 200 mg HS PRANAY Administration Heparin Sodium (Porcine) 5,000 unit 01/16/19 22:00 01/18/19 06:08 Heparin - SQ 5,000 unit TID PRANAY Administration Famotidine/Sodium Chloride 20 mg in 50 mls @ 100 mls/hr 01/14/19 22:00 10:37 Pepcid 20 Mg Premixed Ivpb - IVPB 100 mls/hr BID PRANAY Administration Insulin Aspart 1 vial 01/14/19 21:15 01/18/19 11:32 Novolog Vial Sliding Scale - SQ Not Given TIDAC [facility] Protocol Morphine Sulfate 2 mg 01/15/19 12:12 01/17/19 21:02 Morphine Sulfate IVPUSH 2 mg Q4H PRN Administration PAIN LEVEL 6-10 Ondansetron HCl 4 mg 01/15/19 08:03 Zofran Injection IVPUSH Q6H PRN NAUSEA ASSESSMENT/PLAN: CT abdomen: right upper pole renal cell carcinoma 7.2 X 7.2 X 7.8 cm in size. 53 y/o F with PMH HTN, HLD, possible MS, TIA x 2, who presented for lower extremity weakness. #LE weakness -possibly 2/2 MS, w/u o/p was never completed due to pt not following up but eventually presented to ED with the bowel incontinence after going to [place]. -c/w decadron -on morphine for pain control -Neuro (Dr. Campbell)- Pt symptoms definitely due to Multiple sclerosis, MRI done a few days prior to admission is consistent with MS and the LS disc herniation is not the cause of the symptoms. Switch to PO decadron 4mg q12hrs. - Repeat MRI of brain with contrast for MS could be done as o/p. Pt will need spinal tap as o/p. - Neurosx (Dr. Guo)- does not think pt is a surgical candidate at this time. Does not believe this disc bulge was cause of bowel and bladder incontinence. - PT eval showed pt ambulated for 200 ft. #DM -ISS while pt on steroids #Renal Mass - Dr. Liriano (urology)- awaiting recs #Constipation -c/w colace #HTN- controlled -c/w amlodipine #F/E/N not requiring IVF continue to follow lytes na controlled diet #PPX DVT: SCD's #Dispo cont'd monitoring on med-surg Visit type - Emergency Visit Emergency Visit: No - New Patient This patient is new to me today: No - Critical Care Critical Care patient: No - Discharge Referral Referred to [facility] No ATTENDING PHYSICIAN STATEMENT I saw and evaluated the patient. I reviewed the resident's note and discussed the case with the resident. I agree with the resident's findings and plan as documented. SUBJECTIVE: OBJECTIVE: ASSESSMENT AND PLAN:
--- NOTE | 2019-01-18 15:36 | EKG ---
Test Reason : Blood Pressure : / mmHG Vent. Rate : 054 BPM Atrial Rate : 054 BPM P-R Int : 158 ms QRS Dur : 096 ms QT Int : 438 ms P-R-T Axes : 046 044 032 degrees QTc Int : 415 ms SINUS BRADYCARDIA OTHERWISE NORMAL ECG WHEN COMPARED WITH ECG OF 14-JAN-2019 11:34, NO SIGNIFICANT CHANGE WAS FOUND Confirmed by MD FRANCES, TESHA ([id number]) on 01/18/2019 3:36:26 PM Referred By: Kamilla RIOS Confirmed By:TESHA DANIELS MD
--- NOTE | 2019-01-18 16:28 | PN ---
Teaching Attending Note Name of Resident: Homero Borjas ATTENDING PHYSICIAN STATEMENT I saw and evaluated the patient. I reviewed the resident's note and discussed the case with the resident. I agree with the resident's findings and plan as documented. SUBJECTIVE: Ongoing altered sensation. RLE weakness improving. No back pain. No further incontinence. OBJECTIVE: Afebrile, Hemodynamicaly Stable. Last Vital Signs Temp Pulse Resp BP Pulse Ox 98 F 84 18 148/68 100 01/18/19 10:56 01/18/19 10:56 01/18/19 10:56 01/18/19 10:56 01/17/19 21:00 HEENT- Afebrile, Hemodynamically Stable. Heart - S1, S2, RRR Lungs - Clear to auscultation. Abdomen - soft, non-tender. Bowel Sounds normal. Extremities - No edema, no calf tenderness. Neuro - AAO x 3. Altered sensation torso/abdomen below T4 to pelvis. Mild decrease in Power RLE 4/5. Laboratory Results - last 24 hr 01/17/19 01/18/19 01/18/19 18:06 06:36 06:52 WBC 8.9 RBC 4.40 Hgb 12.2 Hct 36.7 MCV 83.4 MCH 27.7 MCHC 33.2 RDW 13.9 Plt Count 165 MPV 10.2 Absolute Neuts (auto) 7.7 Neutrophils % 85.7 H Lymphocytes % 11.5 Monocytes % 2.7 L D Eosinophils % 0.0 D Basophils % 0.1 D Nucleated RBC % 0 Sodium Potassium Chloride Carbon Dioxide Anion Gap BUN Creatinine Est GFR (CKD-EPI)AfAm Est GFR (CKD-EPI)NonAf POC Glucometer 167 126 Random Glucose Calcium Total Bilirubin AST ALT Alkaline Phosphatase Total Protein Albumin 01/18/19 01/18/19 06:52 11:30 WBC RBC Hgb Hct MCV MCH MCHC RDW Plt Count MPV Absolute Neuts (auto) Neutrophils % Lymphocytes % Monocytes % Eosinophils % Basophils % Nucleated RBC % Sodium 139 Potassium 4.0 Chloride 102 Carbon Dioxide 29 Anion Gap 8 BUN 21.4 H Creatinine 0.9 Est GFR (CKD-EPI)AfAm 84.61 Est GFR (CKD-EPI)NonAf 73.00 POC Glucometer 141 Random Glucose 117 H Calcium 8.8 Total Bilirubin 0.4 AST 10 L ALT 27 Alkaline Phosphatase 121 H Total Protein 7.4 Albumin 3.2 L Current Medications Generic Name Dose Route Start Last Admin Trade Name Freq PRN Reason Stop Dose Admin Acetaminophen 650 mg 01/17/19 11:16 01/17/19 11:24 Tylenol - PO 650 mg Q6H PRN Administration PAIN LEVEL 1-5 Amlodipine Besylate 2.5 mg 01/14/19 21:00 01/18/19 12:36 Norvasc - PO 2.5 mg DAILY PRANAY Administration Dexamethasone Sodium Phosphate 6 mg 01/14/19 17:15 01/18/19 12:36 Decadron Injection - IVPB 6 mg Q6H PRANAY Administration Docusate Sodium 200 mg 01/15/19 22:00 01/17/19 21:02 Colace - PO 200 mg HS PRANAY Administration Heparin Sodium (Porcine) 5,000 unit 01/16/19 22:00 01/18/19 15:40 Heparin - SQ Not Given TID PRANAY Famotidine/Sodium Chloride 20 mg in 50 mls @ 100 mls/hr 01/14/19 22:00 10:37 Pepcid 20 Mg Premixed Ivpb - IVPB 100 mls/hr BID PRANAY Administration Insulin Aspart 1 vial 01/14/19 21:15 01/18/19 11:32 Novolog Vial Sliding Scale - SQ Not Given TIDAC [facility] Protocol Morphine Sulfate 2 mg 01/15/19 12:12 01/17/19 21:02 Morphine Sulfate IVPUSH 2 mg Q4H PRN Administration PAIN LEVEL 6-10 Ondansetron HCl 4 mg 01/15/19 08:03 Zofran Injection IVPUSH Q6H PRN NAUSEA ASSESSMENT/PLAN: 53 year old female with HTN, HLD, pre-DM 2, possible MS, TIA x 2, presents with lower extremity weakness, altered sensation, 1 episode of fecal incontinence. 1. LE Weakness, Altered Sensation, Bowel Dysfunction - ? Transverse Myelitis versus MS versus Paraneoplastic Syndrome Seen by Neurology and started on Decadron (GI Px with Famotidine), with some improvement in symptoms. As per Neuro, further work-up as out-patient including LP MRI L/S Spine - no cord compression, DJD with L5/S1 disc herniation, L4/5 disc bulge Evaluated by Neurosurgery - no need for intervention as these DJD findings do not explain current neurological symptoms/signs 2. Right Upper Pole Renal Mass (suspicious for Renal Ca) - Oncology/ consulted. Work-up can be performed as out-patient. R flank pain - will transition from oxycodone to Morphine. 3. HTN - Continue Norvasc 2.5mg daily. DVT Px - Heparin SQ.
[2019-01-18] MEDS ORDERED: POLYETHYLENE GLYCOL 3350 119 GM BTL PO PRN (17:35)
--- NOTE | 2019-01-18 18:30 | PN ---
Progress Note (short form) - Note Progress Note: Patient seen and examined CT with large enhancing renal mass- strongly suspicious for RCC Will plan for pelvic and chest CT Still with numbness LE and abdomen Neurology entertaining diagnosis of MS.
[2019-01-18] MEDS: oxyCODONE HCL 5 MG TABLET PO PRN (21:39)
[2019-01-18] MEDS: DOCUSATE SODIUM 100 MG CAPSULE (FP) PO SCH (21:41)
[2019-01-18] MEDS: SENNOSIDES 8.6MG TABLET (FP) PO SCH (21:41)
[2019-01-19] MEDS: DEXAMETHASONE SOD PHOSPHATE 10 MG/1 ML VIAL IVPB SCH ×2 (06:03→10:48)
[2019-01-19] MEDS: HEPARIN NA (PORCINE) 5,000 UNITS/ML 1ML VIAL SQ SCH ×3 (06:03→21:16)
[2019-01-19] MEDS: INSULIN SLIDING SCALE (NOVOLOG) 1 VIAL SQ SCH ×3 (06:10→16:11)
[2019-01-19 07:32] LABS: HEMATOCRIT 37.7 % (32.4-45.2); HEMOGLOBIN 12.6 GM/dL (10.7-15.3); LYMPH % 10.8 % (8-40); MCH 27.8 pg (25.7-33.7); MCHC 33.4 g/dl (32.0-36.0); MONO % 3.3 % (3.8-10.2); NEUT % 85.9 % (42.8-82.8); PLATELET COUNT 161 K/MM3 (134-434); RBC 4.55 M/mm3 (3.60-5.2); RDW 13.9 % (11.6-15.6); WHITE BLOOD COUNT 9.1 K/mm3 (4.0-10.0)
[2019-01-19 07:59] LABS: ALBUMIN 3.1 g/dl (3.4-5.0); BILIRUBIN,TOTAL 0.4 mg/dL (0.2-1); BLOOD UREA NITROGEN 20.4 mg/dL (7-18); CALCIUM 8.7 mg/dL (8.5-10.1); CREATININE 0.9 mg/dL (0.55-1.3); POTASSIUM 4.1 mmol/L (3.5-5.1)
[2019-01-19] MEDS: amLODIPine BESYLATE 2.5 MG TABLET (FP) PO SCH (09:11)
[2019-01-19] MEDS: SENNOSIDES 8.6MG TABLET (FP) PO SCH ×2 (09:11→21:20)
[2019-01-19] MEDS: FAMOTIDINE 20 MG/50 ML IVPB 20 MG/50 ML MG IVPB SCH ×2 (09:11→21:17)
[2019-01-19] MEDS: ACETAMINOPHEN 325 MG TABLET (FP) PO PRN (09:12)
[2019-01-19] MEDS: oxyCODONE HCL 5 MG TABLET PO PRN (09:13)
[2019-01-19] MEDS ORDERED: INSULIN (NOVOLOG) ASPART 100 UNITS/ML 10ML VIAL ONE (10:43)
[2019-01-19 13:28] LABS: ANISOCYTOSIS 0; MACROCYTOSIS 0; PLATELET ESTIMATE NORMAL
--- NOTE | 2019-01-19 13:57 | PN ---
Progress Note, Physician History of Present Illness: events noted chart reviewed Case discussed with the attending Feels better leg is still weak Review the MRI of the brain again Patient needs follow-up with the urologist regarding questionable nephrectomy - Current Medication List Current Medications: Active Medications Acetaminophen (Tylenol -) 650 mg PO Q6H PRN PRN Reason: PAIN LEVEL 1-5 Last Admin: 01/19/19 09:12 Dose: 650 mg Amlodipine Besylate (Norvasc -) 2.5 mg PO DAILY [facility] Last Admin: 01/19/19 09:11 Dose: 2.5 mg Dexamethasone Sodium Phosphate (Decadron Injection -) 6 mg IVPB Q6H [facility] Last Admin: 01/19/19 10:48 Dose: 6 mg Docusate Sodium (Colace -) 200 mg PO HS [facility] Last Admin: 01/18/19 21:41 Dose: 200 mg Heparin Sodium (Porcine) (Heparin -) 5,000 unit SQ TID [facility] Last Admin: 01/19/19 13:25 Dose: 5,000 unit Famotidine/Sodium Chloride (Pepcid 20 Mg Premixed Ivpb -) 20 mg in 50 mls @ 100 mls/hr IVPB BID [facility] Last Admin: 01/19/19 09:11 Dose: 100 mls/hr Insulin Aspart (Novolog Vial Sliding Scale -) 1 vial SQ TIDAC [facility]; Protocol Last Admin: 01/19/19 10:51 Dose: Not Given Ondansetron HCl (Zofran Injection) 4 mg IVPUSH Q6H PRN PRN Reason: NAUSEA Oxycodone HCl (Roxicodone -) 5 mg PO Q6H PRN PRN Reason: PAIN LEVEL 4 - 6 Last Admin: 01/19/19 09:13 Dose: 5 mg Polyethylene Glycol (Miralax (For Daily Use) -) 17 gm PO DAILY PRN PRN Reason: CONSTIPATION Senna (Senna -) 1 tab PO BID [facility] Last Admin: 01/19/19 09:11 Dose: 1 tab - Objective Vital Signs: Vital Signs Temperature 98.7 F 01/19/19 09:00 Pulse Rate 60 01/19/19 09:00 Respiratory Rate 18 01/19/19 09:00 Blood Pressure 134/76 01/19/19 09:00 O2 Sat by Pulse Oximetry (%) 98 01/19/19 09:00 Constitutional: Yes: Well Nourished Eyes: Yes: WNL HENT: Yes: WNL Neurological: Yes: Alert, Oriented, Babinski negative Labs: CBC, BMP 01/19/19 06:37 01/19/19 06:37 INR, PTT INR 1.08 (0.83-1.09) 01/14/19 12:30 Problem List - Problems (1) Multiple sclerosis Assessment/Plan: 1. Change Decadron 2 by mouth. 2. Fall precautions. 3. We'll arrange for a spinal tap as an outpatient. 4. Follow-up with urology. 5. GI prophylaxis area 6. Physical therapy Code(s): G35 - MULTIPLE SCLEROSIS
--- NOTE | 2019-01-19 15:05 | PN ---
Teaching Attending Note Name of Resident: Homero Borjas ATTENDING PHYSICIAN STATEMENT I saw and evaluated the patient. I reviewed the resident's note and discussed the case with the resident. I agree with the resident's findings and plan as documented. SUBJECTIVE:Still c/o numbness in LE OBJECTIVE: Vital Signs Temperature 97.9 F 01/19/19 14:00 Pulse Rate 55 L 01/19/19 14:00 Respiratory Rate 18 01/19/19 14:00 Blood Pressure 142/69 01/19/19 14:00 O2 Sat by Pulse Oximetry (%) 98 01/19/19 09:00 Young F not in distress HEENT: mm moist, no anemia NECK: No JVD No Bruit CHEST: CTA B/L ABD: no distention Foleys at place EXT: No keven afeet CHEMIST PHYSICAL: AOX3 able to ambulate subjective sensory loss no gross motor weakness CBC, BMP 01/19/19 06:37 01/19/19 06:37 Active Medications Acetaminophen (Tylenol -) 650 mg PO Q6H PRN PRN Reason: PAIN LEVEL 1-5 Last Admin: 01/19/19 09:12 Dose: 650 mg Amlodipine Besylate (Norvasc -) 2.5 mg PO DAILY [facility] Last Admin: 01/19/19 09:11 Dose: 2.5 mg Dexamethasone Sodium Phosphate (Decadron Injection -) 6 mg IVPB Q6H PRANAY Last Admin: 01/19/19 10:48 Dose: 6 mg Docusate Sodium (Colace -) 200 mg PO HS [facility] Last Admin: 01/18/19 21:41 Dose: 200 mg Heparin Sodium (Porcine) (Heparin -) 5,000 unit SQ TID [facility] Last Admin: 01/19/19 13:25 Dose: 5,000 unit Famotidine/Sodium Chloride (Pepcid 20 Mg Premixed Ivpb -) 20 mg in 50 mls @ 100 mls/hr IVPB BID [facility] Last Admin: 01/19/19 09:11 Dose: 100 mls/hr Insulin Aspart (Novolog Vial Sliding Scale -) 1 vial SQ TIDAC [facility]; Protocol Last Admin: 01/19/19 10:51 Dose: Not Given Ondansetron HCl (Zofran Injection) 4 mg IVPUSH Q6H PRN PRN Reason: NAUSEA Oxycodone HCl (Roxicodone -) 5 mg PO Q6H PRN PRN Reason: PAIN LEVEL 4 - 6 Last Admin: 01/19/19 09:13 Dose: 5 mg Polyethylene Glycol (Miralax (For Daily Use) -) 17 gm PO DAILY PRN PRN Reason: CONSTIPATION Senna (Senna -) 1 tab PO BID PRANAY Last Admin: 01/19/19 09:11 Dose: 1 tab ASSESSMENT AND PLAN:53 year old female with HTN, HLD, pre-DM 2, possible MS, TIA x 2, presents with lower extremity weakness, altered sensation, 1 episode of fecal incontinence. Problem List - Problems (1) Leg weakness Assessment/Plan: with incontinence discussed with neurology previous w/u in office shows abnormal brain MRI consistent with MS although spinal MRI is normal cont Po Decadrone Dc foleys catheter Code(s): R29.898 - OTH SYMPTOMS AND SIGNS INVOLVING THE MUSCULOSKELETAL SYSTEM Qualifiers: Laterality: bilateral Qualified Code(s): R29.898 - Other symptoms and signs involving the musculoskeletal system (2) Multiple sclerosis Assessment/Plan: in the process of w/u as out patient Neurology will perform LPas out patient Code(s): G35 - MULTIPLE SCLEROSIS (3) Renal mass, right Assessment/Plan: Large renal Upper pole mass evaluted by Oncology CT chest and abd shows no mets F/U recommondation Code(s): N28.89 - OTHER SPECIFIED DISORDERS OF KIDNEY AND URETER
--- NOTE | 2019-01-19 17:38 | PN ---
Physical Exam: SUBJECTIVE: Patient seen and examined at the bedside this AM. No acute events overnight. OBJECTIVE: Vital Signs Period Temp Pulse Resp BP Sys/Rice Pulse Ox Last 24 Hr 97.9 F-99.0 F 48-61 18-18 119-142/69-84 98-100 GENERAL: The patient is awake, alert, and fully oriented, in no acute distress. HEAD: Normal with no signs of trauma. EYES: PERRL, extraocular movements grossly intact, sclera anicteric, conjunctiva clear. No ptosis. ENT: Ears normal, nares patent, oropharynx clear without exudates, moist mucous membranes. NECK: supple. LUNGS: Breath sounds equal, clear to auscultation bilaterally, no wheezes, no crackles, no accessory muscle use. HEART: Regular rate and rhythm, S1, S2 without murmur, rub or gallop. ABDOMEN: Soft, nontender, nondistended, hyperactive bowel sounds, no guarding, no rebound. EXTREMITIES: warm, well-perfused, no edema. NEUROLOGICAL: Cranial nerves II through XII grossly intact. Normal speech, gait not observed. PSYCH: Normal mood, normal affect. SKIN: Warm, dry, no rashes or lesions noted Laboratory Results - last 24 hr 01/19/19 01/19/19 01/19/19 06:07 06:37 06:37 WBC 9.1 RBC 4.55 Hgb 12.6 Hct 37.7 MCV 83.0 MCH 27.8 MCHC 33.4 RDW 13.9 Plt Count 161 MPV 10.0 Absolute Neuts (auto) 7.8 Neutrophils % 85.9 H Neutrophils % (Manual) 84.0 H Band Neutrophils % 0.0 Lymphocytes % 10.8 Lymphocytes % (Manual) 7.0 L Monocytes % 3.3 L Monocytes % (Manual) 1 L Eosinophils % 0.0 Eosinophils % (Manual) 6.0 H Basophils % 0.0 Basophils % (Manual) 0.0 Myelocytes % (Man) 2 Promyelocytes % (Man) 0 Blast Cells % (Manual) 0 Nucleated RBC % 0 Metamyelocytes 0 Hypochromia 0 Platelet Estimate Normal Polychromasia 0 Poikilocytosis 0 Anisocytosis 0 Microcytosis 0 Macrocytosis 0 Sodium 140 Potassium 4.1 Chloride 104 Carbon Dioxide 28 Anion Gap 8 BUN 20.4 H Creatinine 0.9 Est GFR (CKD-EPI)AfAm 84.61 Est GFR (CKD-EPI)NonAf 73.00 POC Glucometer 131 Random Glucose 121 H Calcium 8.7 Total Bilirubin 0.4 GGT AST 9 L ALT 28 Alkaline Phosphatase 116 Total Protein 7.0 Albumin 3.1 L 01/19/19 01/19/19 01/19/19 06:37 10:50 16:09 WBC RBC Hgb Hct MCV MCH MCHC RDW Plt Count MPV Absolute Neuts (auto) Neutrophils % Neutrophils % (Manual) Band Neutrophils % Lymphocytes % Lymphocytes % (Manual) Monocytes % Monocytes % (Manual) Eosinophils % Eosinophils % (Manual) Basophils % Basophils % (Manual) Myelocytes % (Man) Promyelocytes % (Man) Blast Cells % (Manual) Nucleated RBC % Metamyelocytes Hypochromia Platelet Estimate Polychromasia Poikilocytosis Anisocytosis Microcytosis Macrocytosis Sodium Potassium Chloride Carbon Dioxide Anion Gap BUN Creatinine Est GFR (CKD-EPI)AfAm Est GFR (CKD-EPI)NonAf POC Glucometer 113 150 Random Glucose Calcium Total Bilirubin GGT 58 AST ALT Alkaline Phosphatase Total Protein Albumin Active Medications Generic Name Dose Route Start Last Admin Trade Name Freq PRN Reason Stop Dose Admin Acetaminophen 650 mg 01/17/19 11:16 01/19/19 09:12 Tylenol - PO 650 mg Q6H PRN Administration PAIN LEVEL 1-5 Amlodipine Besylate 2.5 mg 01/14/19 21:00 01/19/19 09:11 Norvasc - PO 2.5 mg DAILY PRANAY Administration Dexamethasone 4 mg 01/19/19 22:00 Decadron - PO BID PRANAY Docusate Sodium 200 mg 01/15/19 22:00 01/18/19 21:41 Colace - PO 200 mg HS PRANAY Administration Heparin Sodium (Porcine) 5,000 unit 01/16/19 22:00 01/19/19 13:25 Heparin - SQ 5,000 unit TID PRANAY Administration Famotidine/Sodium Chloride 20 mg in 50 mls @ 100 mls/hr 01/14/19 22:00 09:11 Pepcid 20 Mg Premixed Ivpb - IVPB 100 mls/hr BID PRANAY Administration Insulin Aspart 1 vial 01/14/19 21:15 01/19/19 16:11 Novolog Vial Sliding Scale - SQ Not Given [facility] Protocol Ondansetron HCl 4 mg 01/15/19 08:03 Zofran Injection IVPUSH Q6H PRN NAUSEA Oxycodone HCl 5 mg 01/18/19 17:33 01/19/19 09:13 Roxicodone - PO 5 mg Q6H PRN Administration PAIN LEVEL 4 - 6 Polyethylene Glycol 17 gm 01/18/19 17:35 Miralax (For Daily Use) - PO DAILY PRN CONSTIPATION Senna 1 tab 01/18/19 22:00 01/19/19 09:11 Senna - PO 1 tab BID PRANAY Administration ASSESSMENT/PLAN: CT abdomen: right upper pole renal cell carcinoma 7.2 X 7.2 X 7.8 cm in size. 53 y/o F with PMH HTN, HLD, possible MS, TIA x 2, who presented for lower extremity weakness and bowel incontinence X 1 day. #LE weakness -possibly 2/2 MS, w/u o/p was never completed due to pt not following up but eventually presented to ED with the bowel incontinence after going to [employer]. -on morphine for pain control -Neuro (Dr. Campbell)- Pt symptoms definitely due to Multiple sclerosis, MRI done a few days prior to admission is consistent with MS and the Lumbosacral disc herniation is not the cause of the symptoms. Switched to PO decadron 4mg q12hrs. - Repeat MRI of brain with contrast for MS could be done as o/p. Pt will need spinal tap as o/p. - Neurosx (Dr. Guo)- does not think pt is a surgical candidate at this time. Does not believe this disc bulge was cause of bowel and bladder incontinence. #DM -ISS while pt on steroids #Renal Mass - Dr. Liriano (urology)- awaiting recs for potential nephrectomy at a later time. #Constipation -c/w colace #HTN- controlled -c/w amlodipine #F/E/N not requiring IVF continue to follow lytes na controlled diet #PPX DVT: SCD's #Dispo cont'd monitoring on med-surg Visit type - Emergency Visit Emergency Visit: Yes ED Registration Date: 01/14/19 Care time: The patient presented to the Emergency Department on the above date and was hospitalized for further evaluation of their emergent condition. - New Patient This patient is new to me today: No - Critical Care Critical Care patient: No - Discharge Referral Referred to [facility] Med [facility] No ATTENDING PHYSICIAN STATEMENT I saw and evaluated the patient. I reviewed the resident's note and discussed the case with the resident. I agree with the resident's findings and plan as documented. SUBJECTIVE: OBJECTIVE: ASSESSMENT AND PLAN:
[2019-01-19] MEDS ORDERED: LOPERAMIDE HCL 2 MG CAPSULE PO ONE (19:08)
--- NOTE | 2019-01-19 19:08 | PN ---
Progress Note (short form) - Note Progress Note: Patient seen and examined Diarrhea from contrast for CT scans Sensation coming back from abdomen and moving distally Last Vital Signs Temp Pulse Resp BP Pulse Ox 97.7 F 50 L 18 142/61 98 01/19/19 18:45 01/19/19 18:45 01/19/19 18:45 01/19/19 18:45 01/19/19 09:00 Last Vital Signs Temp Pulse Resp BP Pulse Ox 97.7 F 50 L 18 142/61 98 01/19/19 18:45 01/19/19 18:45 01/19/19 18:45 01/19/19 18:45 01/19/19 09:00 Lungs - clear Cor-RSR Abdsoft Ralph - removed CBC, BMP 01/19/19 06:37 01/19/19 06:37 Current Medications Generic Name Dose Route Start Last Admin Trade Name Freq PRN Reason Stop Dose Admin Acetaminophen 650 mg 01/17/19 11:16 01/19/19 09:12 Tylenol - PO 650 mg Q6H PRN Administration PAIN LEVEL 1-5 Amlodipine Besylate 2.5 mg 01/14/19 21:00 01/19/19 09:11 Norvasc - PO 2.5 mg DAILY PRANAY Administration Dexamethasone 4 mg 01/19/19 22:00 Decadron - PO BID PRANAY Docusate Sodium 200 mg 01/15/19 22:00 01/18/19 21:41 Colace - PO 200 mg HS PRANAY Administration Heparin Sodium (Porcine) 5,000 unit 01/16/19 22:00 01/19/19 13:25 Heparin - SQ 5,000 unit TID PRANAY Administration Famotidine/Sodium Chloride 20 mg in 50 mls @ 100 mls/hr 01/14/19 22:00 09:11 Pepcid 20 Mg Premixed Ivpb - IVPB 100 mls/hr BID PRANAY Administration Insulin Aspart 1 vial 01/14/19 21:15 01/19/19 16:11 Novolog Vial Sliding Scale - SQ Not Given TIDAC [facility] Protocol Ondansetron HCl 4 mg 01/15/19 08:03 Zofran Injection IVPUSH Q6H PRN NAUSEA Oxycodone HCl 5 mg 01/18/19 17:33 01/19/19 09:13 Roxicodone - PO 5 mg Q6H PRN Administration PAIN LEVEL 4 - 6 Polyethylene Glycol 17 gm 01/18/19 17:35 Miralax (For Daily Use) - PO DAILY PRN CONSTIPATION Senna 1 tab 01/18/19 22:00 01/19/19 09:11 Senna - PO 1 tab BID PRANAY Administration CT-- no obvious lung , pelvic mets Impression: Neurologic deficits--? etiology Renal mass Await neurology f/u.
[2019-01-19] MEDS: DEXAMETHASONE 4 MG TABLET (FP) PO SCH (21:16)
[2019-01-19] MEDS: DOCUSATE SODIUM 100 MG CAPSULE (FP) PO SCH (21:20)
[2019-01-20] MEDS: oxyCODONE HCL 5 MG TABLET PO PRN ×3 (06:24→21:51)
[2019-01-20] MEDS: HEPARIN NA (PORCINE) 5,000 UNITS/ML 1ML VIAL SQ SCH ×3 (06:24→21:52)
[2019-01-20] MEDS: ACETAMINOPHEN 325 MG TABLET (FP) PO PRN ×2 (06:25→14:05)
[2019-01-20] MEDS: INSULIN SLIDING SCALE (NOVOLOG) 1 VIAL SQ SCH ×3 (06:25→16:29)
--- NOTE | 2019-01-20 08:04 | PN ---
Teaching Attending Note Name of Resident: Homero Borjas ATTENDING PHYSICIAN STATEMENT I saw and evaluated the patient. I reviewed the resident's note and discussed the case with the resident. I agree with the resident's findings and plan as documented. SUBJECTIVE: C/O diarrhea after Po contrast had stool incontinence OBJECTIVE: Vital Signs Temperature 97.7 F 01/20/19 06:14 Pulse Rate 56 L 01/20/19 06:14 Respiratory Rate 18 01/20/19 06:14 Blood Pressure 142/87 01/20/19 06:14 O2 Sat by Pulse Oximetry (%) 98 01/19/19 21:00 Young F not in distress HEENT: mm moist, no anemia NECK: No JVD No Bruit CHEST: CTA B/L ABD: no distention Foleys at place EXT: No edema feet PATIENT ACCOUNT ANALYST: AOX3 able to ambulate subjective sensory loss no gross motor weakness CBC, BMP 01/19/19 06:37 01/19/19 06:37 Active Medications Acetaminophen (Tylenol -) 650 mg PO Q6H PRN PRN Reason: PAIN LEVEL 1-5 Last Admin: 01/20/19 06:25 Dose: 650 mg Amlodipine Besylate (Norvasc -) 2.5 mg PO DAILY [facility] Last Admin: 01/20/19 09:16 Dose: 2.5 mg Dexamethasone (Decadron -) 4 mg PO BID [facility] Last Admin: 01/20/19 09:17 Dose: 4 mg Docusate Sodium (Colace -) 200 mg PO HS [facility] Last Admin: 01/19/19 21:20 Dose: Not Given Heparin Sodium (Porcine) (Heparin -) 5,000 unit SQ TID [facility] Last Admin: 01/20/19 06:24 Dose: 5,000 unit Famotidine/Sodium Chloride (Pepcid 20 Mg Premixed Ivpb -) 20 mg in 50 mls @ 100 mls/hr IVPB BID [facility] Last Admin: 01/20/19 09:17 Dose: 100 mls/hr Insulin Aspart (Novolog Vial Sliding Scale -) 1 vial SQ TIDAC [facility]; Protocol Last Admin: 01/20/19 11:19 Dose: Not Given Ondansetron HCl (Zofran Injection) 4 mg IVPUSH Q6H PRN PRN Reason: NAUSEA Oxycodone HCl (Roxicodone -) 5 mg PO Q6H PRN PRN Reason: PAIN LEVEL 4 - 6 Last Admin: 01/20/19 06:24 Dose: 5 mg Polyethylene Glycol (Miralax (For Daily Use) -) 17 gm PO DAILY PRN PRN Reason: CONSTIPATION Senna (Senna -) 1 tab PO BID [facility] Last Admin: 01/20/19 09:19 Dose: Not Given ASSESSMENT AND PLAN:53 year old female with HTN, HLD, pre-DM 2, possible MS, TIA x 2, presents with lower extremity weakness, altered sensation, 1 episode of fecal incontinence. Problem List - Problems (1) Leg weakness Code(s): R29.898 - OTH SYMPTOMS AND SIGNS INVOLVING THE MUSCULOSKELETAL SYSTEM Qualifiers: Laterality: bilateral Qualified Code(s): R29.898 - Other symptoms and signs involving the musculoskeletal system (2) Multiple sclerosis Assessment/Plan: in the process of w/u as out patient Neurology will perform LPas out patient Code(s): G35 - MULTIPLE SCLEROSIS (3) Renal mass, right Assessment/Plan: Large renal Upper pole mass evaluated by Oncology CT chest and abd shows no mets , awaiting F/U recommendation Code(s): N28.89 - OTHER SPECIFIED DISORDERS OF KIDNEY AND URETER
[2019-01-20] MEDS: amLODIPine BESYLATE 2.5 MG TABLET (FP) PO SCH (09:16)
[2019-01-20] MEDS: DEXAMETHASONE 4 MG TABLET (FP) PO SCH ×2 (09:17→21:52)
[2019-01-20] MEDS: SENNOSIDES 8.6MG TABLET (FP) PO SCH ×2 (09:17→09:19)
[2019-01-20] MEDS: FAMOTIDINE 20 MG/50 ML IVPB 20 MG/50 ML MG IVPB SCH ×2 (09:17→21:51)
--- NOTE | 2019-01-20 14:46 | PN ---
Progress Note (short form) - Note Progress Note: Patient has an 8 cm right renal masses suspicious for cancer once her neurological status is assessed and stabilized, she will need to be scheduled for surgical managament . will consult Dr. Neftaly Bowen phone number for viability of robotic nephrectomy
[2019-01-20] MEDS: LOPERAMIDE HCL 2 MG CAPSULE PO PRN ×2 (15:01→21:51)
--- NOTE | 2019-01-20 17:36 | CONSULT ---
Consult - text type - Consultation Consultation Note: 53 Y/O Female patient with history of DM, HT and MS admitted for lower limb weakness. voiding well no incontinence no dysuria or hematuria. CT-Scan showed Rt upper pole renal mass 7.6 cm-Renal cell cancer? WBC 8.9 BUN 21 S.Creat 0.9 O/E soft lax abd no palpable mass. was consulted first and he is planing to schedule Robotic Nephrectomy. Plan: Right upper pole Renal tumor 7.6 cm., no mets. For Robotic Partial or Radical Nephrectomy
--- NOTE | 2019-01-20 18:40 | PN ---
Physical Exam: SUBJECTIVE: Patient seen and examined at the bedside. No acute events overnight. OBJECTIVE: Vital Signs Period Temp Pulse Resp BP Sys/Rice Pulse Ox Last 24 Hr 97.3 F-98.9 F 50-58 18-18 118-146/61-87 98 GENERAL: The patient is awake, alert, and fully oriented, in no acute distress. HEAD: Normal with no signs of trauma. NECK: supple. LUNGS: Breath sounds equal, clear to auscultation bilaterally, no wheezes, no crackles, no accessory muscle use. HEART: Regular rate and rhythm, S1, S2 without murmur, rub or gallop. ABDOMEN: Soft, nontender, nondistended, normoactive bowel sounds, no guarding, no rebound. sensation is back in her abdominal region. EXTREMITIES: warm, well-perfused, no edema, sensation intact, 4/5 b/l Lower extremity and 5/5 b/l upper extremity. NEUROLOGICAL: Cranial nerves II through XII grossly intact. Normal speech, gait not observed. PSYCH: Normal mood, normal affect. SKIN: Warm, dry, normal turgor, no rashes or lesions noted Laboratory Results - last 24 hr 01/20/19 01/20/19 01/20/19 06:20 11:18 16:27 POC Glucometer 117 122 156 Active Medications Generic Name Dose Route Start Last Admin Trade Name Freq PRN Reason Stop Dose Admin Acetaminophen 650 mg 01/17/19 11:16 01/20/19 14:05 Tylenol - PO 650 mg Q6H PRN Administration PAIN LEVEL 1-5 Amlodipine Besylate 2.5 mg 01/14/19 21:00 01/20/19 09:16 Norvasc - PO 2.5 mg DAILY [facility] Administration Dexamethasone 4 mg 01/19/19 22:00 01/20/19 09:17 Decadron - PO 4 mg BID [facility] Administration Docusate Sodium 200 mg 01/15/19 22:00 01/19/19 21:20 Colace - PO Not Given HS [facility] Heparin Sodium (Porcine) 5,000 unit 01/16/19 22:00 01/20/19 14:04 Heparin - SQ 5,000 unit TID [facility] Administration Famotidine/Sodium Chloride 20 mg in 50 mls @ 100 mls/hr 01/14/19 22:00 09:17 Pepcid 20 Mg Premixed Ivpb - IVPB 100 mls/hr BID [facility] Administration Insulin Aspart 1 vial 01/14/19 21:15 01/20/19 16:29 Novolog Vial Sliding Scale - SQ Not Given TIDAC [facility] Protocol Loperamide HCl 2 mg 01/20/19 14:44 01/20/19 15:01 Imodium - PO 2 mg Q8H PRN Administration DIARRHEA Ondansetron HCl 4 mg 01/15/19 08:03 Zofran Injection IVPUSH Q6H PRN NAUSEA Oxycodone HCl 5 mg 01/18/19 17:33 01/20/19 14:05 Roxicodone - PO 5 mg Q6H PRN Administration PAIN LEVEL 4 - 6 Polyethylene Glycol 17 gm 01/18/19 17:35 Miralax (For Daily Use) - PO DAILY PRN CONSTIPATION ASSESSMENT/PLAN: CT abdomen: right upper pole renal cell carcinoma 7.2 X 7.2 X 7.8 cm in size. 53 y/o F with PMH HTN, HLD, possible MS, TIA x 2, who presented for lower extremity weakness and bowel incontinence X 1 day. #LE weakness -possibly 2/2 MS, w/u o/p was never completed due to pt not following up but eventually presented to ED with the bowel incontinence after going to [facility]. -on morphine for pain control -Neuro (Dr. Campbell)- PO decadron 4mg q12hrs. - Repeat MRI of brain with contrast for MS could be done as o/p. Pt will need spinal tap as o/p. #DM -ISS while pt on steroids #Renal Mass - Dr. Liriano (urology)- awaiting recs for potential nephrectomy at a later time. -Consulted Dr. Martinez for uro eval of mass and he explained to patient to f/u with [facility] for robotic nephrectomy. (appreciate recommendations) #Constipation -c/w colace - imodium for abdominal cramps #HTN- controlled -c/w amlodipine #F/E/N not requiring IVF continue to follow lytes na controlled diet #PPX DVT: SCD's #Dispo cont'd monitoring on med-surg Visit type - Emergency Visit Emergency Visit: Yes ED Registration Date: 01/14/19 Care time: The patient presented to the Emergency Department on the above date and was hospitalized for further evaluation of their emergent condition. - New Patient This patient is new to me today: No - Critical Care Critical Care patient: No - Discharge Referral Referred to [facility] Med P.C.: No ATTENDING PHYSICIAN STATEMENT I saw and evaluated the patient. I reviewed the resident's note and discussed the case with the resident. I agree with the resident's findings and plan as documented. SUBJECTIVE: OBJECTIVE: ASSESSMENT AND PLAN:
[2019-01-21] MEDS: HEPARIN NA (PORCINE) 5,000 UNITS/ML 1ML VIAL SQ SCH ×2 (06:13→16:11)
[2019-01-21] MEDS: LOPERAMIDE HCL 2 MG CAPSULE PO PRN (06:15)
[2019-01-21] MEDS: INSULIN SLIDING SCALE (NOVOLOG) 1 VIAL SQ SCH ×2 (06:16→12:14)
[2019-01-21] MEDS: oxyCODONE HCL 5 MG TABLET PO PRN ×2 (06:24→16:10)
--- NOTE | 2019-01-21 07:53 | PN ---
Teaching Attending Note Name of Resident: Homero Borjas ATTENDING PHYSICIAN STATEMENT I saw and evaluated the patient. I reviewed the resident's note and discussed the case with the resident. I agree with the resident's findings and plan as documented. SUBJECTIVE: Vital Signs Temperature 97.8 F 01/21/19 06:06 Pulse Rate 56 L 01/21/19 06:06 Respiratory Rate 18 01/21/19 06:06 Blood Pressure 125/77 01/21/19 06:06 O2 Sat by Pulse Oximetry (%) 98 01/19/19 21:00 OBJECTIVE: Young F not in distress HEENT: mm moist, no anemia NECK: No JVD No Bruit CHEST: CTA B/L ABD: no distention Foleys at place EXT: No edema feet SHOVEL LOADER OPERATOR: AOX3 able to ambulate subjective sensory loss no gross motor weakness Active Medications Acetaminophen (Tylenol -) 650 mg PO Q6H PRN PRN Reason: PAIN LEVEL 1-5 Last Admin: 01/20/19 14:05 Dose: 650 mg Amlodipine Besylate (Norvasc -) 2.5 mg PO DAILY [facility] Last Admin: 01/20/19 09:16 Dose: 2.5 mg Dexamethasone (Decadron -) 4 mg PO BID [facility] Last Admin: 01/20/19 21:52 Dose: 4 mg Heparin Sodium (Porcine) (Heparin -) 5,000 unit SQ TID [facility] Last Admin: 01/21/19 06:13 Dose: 5,000 unit Famotidine/Sodium Chloride (Pepcid 20 Mg Premixed Ivpb -) 20 mg in 50 mls @ 100 mls/hr IVPB BID [facility] Last Admin: 01/20/19 21:51 Dose: 100 mls/hr Insulin Aspart (Novolog Vial Sliding Scale -) 1 vial SQ TIDAC [facility]; Protocol Last Admin: 01/21/19 06:16 Dose: Not Given Loperamide HCl (Imodium -) 2 mg PO Q8H PRN PRN Reason: DIARRHEA Last Admin: 01/21/19 06:15 Dose: 2 mg Ondansetron HCl (Zofran Injection) 4 mg IVPUSH Q6H PRN PRN Reason: NAUSEA Oxycodone HCl (Roxicodone -) 5 mg PO Q6H PRN PRN Reason: PAIN LEVEL 4 - 6 Last Admin: 01/21/19 06:24 Dose: 5 mg ASSESSMENT AND PLAN:53 year old female with HTN, HLD, pre-DM 2, possible MS, TIA x 2, presents with lower extremity weakness, altered sensation, 1 episode of fecal incontinence. Ct shows Rt Renal mass evaluated by planning Referral for Robotic surgery Problem List - Problems (1) Leg weakness Assessment/Plan: with incontinence discussed with neurology previous w/u in office shows abnormal brain MRI consistent with MS although spinal MRI is normal cont Po Dexamethasone as advised by Neurology consult. dalila arrange a walker on Dc Home Code(s): R29.898 - OTH SYMPTOMS AND SIGNS INVOLVING THE MUSCULOSKELETAL SYSTEM Qualifiers: Laterality: bilateral Qualified Code(s): R29.898 - Other symptoms and signs involving the musculoskeletal system (2) Multiple sclerosis Assessment/Plan: in the process of w/u as out patient Neurology will perform LPas out patient Code(s): G35 - MULTIPLE SCLEROSIS (3) Renal mass, right Assessment/Plan: Large renal Upper pole mass evaluated by Oncology CT chest and abd shows no mets , recommendation out patient F/U Possible robotic surgery. Code(s): N28.89 - OTHER SPECIFIED DISORDERS OF KIDNEY AND URETER
[2019-01-21] MEDS: DEXAMETHASONE 4 MG TABLET (FP) PO SCH (10:13)
[2019-01-21] MEDS: FAMOTIDINE 20 MG/50 ML IVPB 20 MG/50 ML MG IVPB SCH ×2 (10:13→12:14)
[2019-01-21] MEDS: amLODIPine BESYLATE 2.5 MG TABLET (FP) PO SCH (10:13)
[2019-01-21] MEDS ORDERED: RANITIDINE HCL 150 MG TABLET (FP) PO SCH (12:15)
[2019-01-21 13:44] VITALS: BP 133/75; PULSE 55; TEMP 97.7
--- NOTE | 2019-01-21 17:55 | DS ---
Physical Exam: SUBJECTIVE: Patient seen and examined at the bedside this AM. No acute events overnight. OBJECTIVE: Vital Signs Period Temp Pulse Resp BP Sys/Rice Pulse Ox Last 24 Hr 97.7 F-98 F 46-56 18-20 125-133/75-78 PHYSICAL EXAM GENERAL: The patient is awake, alert, and fully oriented, in no acute distress. HEAD: Normal with no signs of trauma. LUNGS: Breath sounds equal, clear to auscultation bilaterally, no wheezes, no crackles, no accessory muscle use. HEART: Regular rate and rhythm, S1, S2 without murmur, rub or gallop. ABDOMEN: Soft, nontender, nondistended, normoactive bowel sounds, no guarding, no rebound, no hepatosplenomegaly, no masses. EXTREMITIES: much better 4/5 b/l lower extremities motor and sensation intact. NEUROLOGICAL: Normal speech, gait not observed. PSYCH: Normal mood, normal affect. SKIN: Warm, dry, normal turgor, no rashes or lesions noted. LABS Laboratory Results - last 24 hr 01/21/19 01/21/19 06:11 12:08 POC Glucometer 133 89 HOSPITAL COURSE: Date of Admission:01/14/19 This is a 53 y/o F with a PMH of HTN, HLD, possible MS, TIA x 2, who was admitted for bowel incontinence and leg weakness found to be due to MS. CT/MRI of lumbar spine show significant disc herniation but Dr. Shannon and Harper do not believe this symptoms is a cauda equina like cause and neurosurgery was not recommended. Dr. Saleem believes she has MS and that is the cause of the symptoms and she is to f/u with him in his office for spinal tap and repeat MRI of brain and start MS management. Incidentally, on CT scan of abd/pelvis they found a renal cell carcinoma in right side upper pole and it is being followed up by Dr. Rhett fang for outpatient robotic surgery to be done at [facility] [facility]. Pt is following up on thursday (01/24) in Suad's office. Date of Discharge: 01/21/19 Minutes to complete discharge: 35 Discharge Summary Reason For Visit: BACK PAIN WEAKNESS OF LOWER EXTREMITY Condition: Stable - Instructions Diet, Activity, Other Instructions: You were admitted for having leg weakness and an uncontrolled bowel movement and urination. You were being followed by your neurologist (Dr. Saleem) and you were found to have multiple sclerosis. We did several imaging studies while you were here, (MRI and CT) of the back which showed a slipped disc but we do not believe that is the reason for your leg weakness and bowel/urinary complaints. We had a neurosurgeon evaluate you (Dr. Cheng) and he did not think you needed any acute intervention. - On the CT of your belly we found a right sided kidney mass that shows findings suspicious of kidney cancer that will require close follow up by your urologist (Dr. Liriano) within 1 week from you leaving here. - We did imaging of your chest and pelvis (CT) which were negative for any spread of the cancer. Medications: -Please START taking Decadron 4 mg ever 12 hours by mouth. You will need to see your neurologist who will adjust the dosage of this medication. Follow Up: You will need to follow up with your primary care physician in 1 week. You will need to follow up with your neurologist, Dr. Saleem. You will need a spinal tap as an outpatient. You will also need a repeat MRI of the brain with contrast for multiple sclerosis as an outpatient. - You should continue all your home medications as prescribed. - You should return to the hospital if you have any worsening of your current symptoms or: chest pain, shortness of breath, fevers, chills. Referrals: Chico Liriano MD., [Staff Physician] - 1 Week Matheus Saleem MD [Staff Physician] - 1 Week Disposition: HOME - Home Medications Comprehensive Discharge Medication List: Ambulatory Orders Amlodipine Besylate 2.5 mg PO DAILY #30 tablet 01/21/19 Blood Pressure Kit-Extra Large [Blood Pressure Monitor] 1 each DAILY #1 kit 01/21/19 Dexamethasone [Decadron] 4 mg PO Q12H #10 tablet 01/21/19 Lancets/Blood Glucose Strips [Fora [id number] [facility]] 1 each AC #1 combo..pkg 01/21/19 Miscellaneous [employer] Supply [Glucometer Device] 1 each AD ASDIR #1 kit [employer] [Glucometer Test Strips #100] 1 each AD ASDIR #1 box 01/21/19 Pantoprazole Sodium [Protonix -] 20 mg PO DAILY #30 tablet.ec 01/21/19 This patient is new to me today: No Emergency Visit: Yes ED Registration Date: 01/14/19 Care time: The patient presented to the Emergency Department on the above date and was hospitalized for further evaluation of their emergent condition. Critical Care patient: No - Discharge Referral Referred to [facility] Med P.C.: No ATTENDING PHYSICIAN STATEMENT I saw and evaluated the patient. I reviewed the resident's note and discussed the case with the resident. I agree with the resident's findings and plan as documented. SUBJECTIVE: OBJECTIVE: ASSESSMENT AND PLAN:
== END 2019-01-21 17:35 | disposition home or self-care (01) | DRG 43 ==
LOC: JER 10:29 → JERBED 16:10 → J7W 17:47
PROVIDERS: ADMIT Internal Medicine; ATTEND Internal Medicine
DX: G35 Multiple sclerosis (principal); R56.9 Unspecified convulsions; R15.9 Full incontinence of feces; C64.1 Malignant neoplasm of right kidney, except renal pelvis; E11.9 Type 2 diabetes mellitus without complications; I10 Essential (primary) hypertension; I25.10 Atherosclerotic heart disease of native coronary artery without angina pectoris; E78.5 Hyperlipidemia, unspecified; M51.86 Other intervertebral disc disorders, lumbar region; Z86.73 Personal history of transient ischemic attack (TIA), and cerebral infarction without residual deficits; R32 Unspecified urinary incontinence; R33.9 Retention of urine, unspecified; K59.00 Constipation, unspecified
CPT/HCPCS: 36415; 71045-TC-FY; 71260-TC; 72128-TC; 72131-TC; 72146-TC; 72148-TC; 72193-TC; 74160-TC; 74170-TC; 80053; 82550; 82553; 82962; 82977; 83036; 83690; 83735; 84100; 84484; 85025; 85610; 86850; 86900; 86901; 93005; 93010; 97116-GP; 97161-GP; 99284-25; J1100; J1644; Q9967

== ENCOUNTER 2020-09-27 12:04 | Inpatient (IN) | payer OTHER ==
[2020-09-27 14:27] LABS: BASO % 0.5 % (0-2.0); HEMATOCRIT 36.1 % (32.4-45.2); HEMOGLOBIN 11.8 GM/dL (10.7-15.3); LYMPH % 27.7 % (8-40); MCH 28.2 pg (25.7-33.7); MCHC 32.7 g/dl (32.0-36.0); MEAN CELL VOLUME 86.4 fl (80-96); MEAN PLT VOLUME 10.1 fl (7.5-11.1); MONO % 8.8 % (3.8-10.2); PLATELET COUNT 175 K/MM3 (134-434); RBC 4.18 M/mm3 (3.60-5.2); RDW 14.5 % (11.6-15.6); WHITE BLOOD COUNT 4.7 K/mm3 (4.0-10.0)
[2020-09-27] MEDS ORDERED: DEXAMETHASONE SOD PHOSPHATE 10 MG/1 ML VIAL IVPUSH ONE (14:39)
[2020-09-27] MEDS ORDERED: DEXAMETHASONE SOD PHOSPHATE 10 MG/1 ML VIAL ONE ×2 (14:43→20:22)
[2020-09-27 14:45] LABS: EPI CELLS 27 /uL (0-25.1); HYALINE CASTS 0 /uL (0-3.1); PH,URINE 5.5 (5.0-8.0); URINE APPEARANCE CLOUDY; URINE BACTERIA 1016 /uL (0-1359); URINE BILIRUBIN NEGATIVE (NEGATIVE); URINE COLOR DK YELLOW; URINE GLUCOSE (UA) NEGATIVE (NEGATIVE); URINE KETONE NEGATIVE (NEGATIVE); URINE LEUK ESTERASE TRACE (NEGATIVE); URINE NITRITE NEGATIVE (NEGATIVE); URINE PROTEIN NEGATIVE (NEGATIVE); URINE RBC 37 /uL (0-23.9); URINE WBC 27 /uL (0-25.8)
[2020-09-27 14:51] LABS: ALBUMIN 3.7 g/dl (3.4-5.0); BLOOD UREA NITROGEN 16.2 mg/dL (7-18); CALCIUM 9.5 mg/dL (8.5-10.1); MAGNESIUM 2.3 mg/dL (1.8-2.4)
[2020-09-27 14:54] LABS: PHOSPHOROUS 3.5 mg/dL (2.5-4.9)
[2020-09-27 14:55] LABS: CREATININE 1.2 mg/dL (0.55-1.3)
[2020-09-27 14:56] LABS: BILIRUBIN,TOTAL 0.4 mg/dL (0.2-1); TOT PROT 7.4 g/dl (6.4-8.2)
[2020-09-27] MEDS ORDERED: LACTATED RINGERS SOLUTION 1000 ML INFUS.BAG IV ONE (15:05)
[2020-09-27 15:50] LABS: URINE CRYSTALS NONE SEEN /hpf
[2020-09-27] MEDS ORDERED: ACETAMINOPHEN 1000 MG/100 ML VIAL (NON FORMULARY) IVPB ONE (15:59)
[2020-09-27] MEDS ORDERED: ACETAMINOPHEN INJECTION 100 ML IVPB ONE (16:00)
[2020-09-27] MEDS ORDERED: ENOXAPARIN NA (PORCINE) 40 MG/0.4 ML DISP.SYRIN SQ ONE (16:59)
[2020-09-27] MEDS: ENOXAPARIN NA (PORCINE) 40 MG/0.4 ML DISP.SYRIN SQ SCH ×2 (17:00→17:46)
[2020-09-27] MEDS: SODIUM CHLORIDE 1,000 ML IV SCH (17:00)
[2020-09-27] MEDS: DEXAMETHASONE SOD PHOSPHATE 10 MG/1 ML VIAL IVPUSH SCH (20:25)
[2020-09-27] MEDS ORDERED: MISOPROSTOL 200 MCG TABLET PO ONE (23:42)
[2020-09-27] MEDS ORDERED: DIMETHYL FUMARATE 240 MG PO ONE (23:45)
[2020-09-28] MEDS ORDERED: TIZANIDINE HCL 4 MG TABLET PO ONE (00:15)
[2020-09-28] MEDS: DEXAMETHASONE SOD PHOSPHATE 10 MG/1 ML VIAL IVPUSH SCH ×4 (02:20→22:10)
[2020-09-28] MEDS ORDERED: HEPARIN NA (PORCINE) 5,000 UNITS/ML 1ML VIAL SQ SCH (06:00)
[2020-09-28 08:36] VITALS: BMI 36.8
[2020-09-28 08:56] LABS: HEMATOCRIT 33.8 % (32.4-45.2); HEMOGLOBIN 11.5 GM/dL (10.7-15.3); LYMPH % 11.7 % (8-40); MCH 29.2 pg (25.7-33.7); MCHC 34.1 g/dl (32.0-36.0); MEAN CELL VOLUME 85.5 fl (80-96); MEAN PLT VOLUME 10.4 fl (7.5-11.1); MONO % 0.7 % (3.8-10.2); NEUT % 87.6 % (42.8-82.8); PLATELET COUNT 170 K/MM3 (134-434); RBC 3.96 M/mm3 (3.60-5.2); RDW 14.4 % (11.6-15.6); WHITE BLOOD COUNT 6.4 K/mm3 (4.0-10.0)
[2020-09-28 09:15] LABS: ALBUMIN 3.4 g/dl (3.4-5.0); BLOOD UREA NITROGEN 16.8 mg/dL (7-18); MAGNESIUM 1.9 mg/dL (1.8-2.4)
[2020-09-28 09:18] LABS: CREATININE 1.2 mg/dL (0.55-1.3)
[2020-09-28 09:19] LABS: PHOSPHOROUS 3.5 mg/dL (2.5-4.9)
[2020-09-28 09:20] LABS: BILIRUBIN,TOTAL 0.3 mg/dL (0.2-1); TOT PROT 7.2 g/dl (6.4-8.2)
[2020-09-28] MEDS: HEPARIN NA (PORCINE) 5,000 UNITS/ML 1ML VIAL SQ SCH ×3 (09:42→22:11)
[2020-09-28] MEDS ORDERED: PATIENT'S OWN MEDICATION (NON-FORMULARY) (Magnesium [Magnesium] 250 MG Tablet) PO SCH (11:30)
[2020-09-28] MEDS: DIMETHYL FUMARATE 240 MG PO SCH ×2 (14:04→22:12)
[2020-09-28] MEDS: SENNOSIDES 8.6MG TABLET (FP) PO SCH (16:29)
[2020-09-28] MEDS: INSULIN SLIDING SCALE (NOVOLOG) 1 VIAL SQ SCH (16:48)
[2020-09-28] MEDS: VITAMIN B COMP W-C 1 EA TABLET (NEPHRO-VITE) PO SCH (18:48)
[2020-09-28] MEDS ORDERED: PT OWN MED DRAWER 7, Y5N ONE (22:00)
[2020-09-28] MEDS: SODIUM CHLORIDE 1,000 ML IV SCH (22:07)
[2020-09-28] MEDS: ROSUVASTATIN CA 10 MG TABLET (FP) PO SCH (22:11)
[2020-09-28] MEDS: FAMOTIDINE 20 MG TABLET PO SCH (22:12)
[2020-09-28] MEDS: ACETAMINOPHEN 325 MG TABLET (FP) PO PRN (22:20)
[2020-09-28] MEDS ORDERED: BACLOFEN 10 MG TABLET (FP) PO ONE (23:52)
[2020-09-28] MEDS ORDERED: DOCUSATE SODIUM 100 MG CAPSULE (FP) PO ONE (23:57)
[2020-09-29] MEDS: DEXAMETHASONE SOD PHOSPHATE 10 MG/1 ML VIAL IVPUSH SCH ×4 (02:17→21:30)
[2020-09-29] MEDS ORDERED: PT OWN MED DRAWER 7, Y5N ONE ×3 (06:24→21:38)
[2020-09-29] MEDS: INSULIN SLIDING SCALE (NOVOLOG) 1 VIAL SQ SCH ×3 (06:44→16:31)
[2020-09-29] MEDS: HEPARIN NA (PORCINE) 5,000 UNITS/ML 1ML VIAL SQ SCH ×3 (06:44→21:29)
[2020-09-29 08:59] LABS: HEMATOCRIT 34.9 % (32.4-45.2); HEMOGLOBIN 11.6 GM/dL (10.7-15.3); LYMPH % 5.4 % (8-40); MCH 28.6 pg (25.7-33.7); MCHC 33.4 g/dl (32.0-36.0); MEAN CELL VOLUME 85.8 fl (80-96); MEAN PLT VOLUME 10.3 fl (7.5-11.1); NEUT % 93.6 % (42.8-82.8); PLATELET COUNT 181 K/MM3 (134-434); RBC 4.07 M/mm3 (3.60-5.2); RDW 14.7 % (11.6-15.6); WHITE BLOOD COUNT 13.6 K/mm3 (4.0-10.0)
[2020-09-29] MEDS: VITAMIN B COMP W-C 1 EA TABLET (NEPHRO-VITE) PO SCH (09:32)
[2020-09-29] MEDS: SENNOSIDES 8.6MG TABLET (FP) PO SCH (09:32)
[2020-09-29] MEDS: FAMOTIDINE 20 MG TABLET PO SCH ×2 (09:32→21:29)
[2020-09-29] MEDS: DIMETHYL FUMARATE 240 MG PO SCH ×2 (09:32→21:41)
[2020-09-29] MEDS: ACETAMINOPHEN 325 MG TABLET (FP) PO PRN (09:34)
[2020-09-29 09:39] LABS: ALBUMIN 3.3 g/dl (3.4-5.0)
[2020-09-29 09:40] LABS: BLOOD UREA NITROGEN 25.6 mg/dL (7-18)
[2020-09-29 09:43] LABS: CREATININE 1.2 mg/dL (0.55-1.3)
[2020-09-29 09:44] LABS: BILIRUBIN,TOTAL 0.2 mg/dL (0.2-1); TOT PROT 6.8 g/dl (6.4-8.2)
[2020-09-29 09:46] LABS: CALCIUM 8.7 mg/dL (8.5-10.1)
[2020-09-29 09:48] LABS: MAGNESIUM 1.9 mg/dL (1.8-2.4)
[2020-09-29 10:24] LABS: ANISOCYTOSIS 0; MACROCYTOSIS 0; PLATELET ESTIMATE NORMAL
[2020-09-29] MEDS: CYCLOBENZAPRINE HCL 5 MG TABLET PO SCH ×2 (13:29→21:29)
[2020-09-29] MEDS: ROSUVASTATIN CA 10 MG TABLET (FP) PO SCH (21:28)
[2020-09-30] MEDS: DEXAMETHASONE SOD PHOSPHATE 10 MG/1 ML VIAL IVPUSH SCH ×2 (02:52→09:38)
[2020-09-30] MEDS: HEPARIN NA (PORCINE) 5,000 UNITS/ML 1ML VIAL SQ SCH ×3 (05:55→22:07)
[2020-09-30] MEDS: CYCLOBENZAPRINE HCL 5 MG TABLET PO SCH ×3 (05:55→22:07)
[2020-09-30] MEDS: INSULIN SLIDING SCALE (NOVOLOG) 1 VIAL SQ SCH ×3 (05:59→16:51)
[2020-09-30] MEDS ORDERED: DOCUSATE SODIUM 100 MG CAPSULE (FP) PO PRN (08:27)
[2020-09-30] MEDS ORDERED: PT OWN MED DRAWER 7, Y5N ONE ×2 (09:36→22:23)
[2020-09-30] MEDS: VITAMIN B COMP W-C 1 EA TABLET (NEPHRO-VITE) PO SCH (09:38)
[2020-09-30] MEDS: FAMOTIDINE 20 MG TABLET PO SCH ×2 (09:38→22:07)
[2020-09-30] MEDS: DIMETHYL FUMARATE 240 MG PO SCH ×2 (09:38→22:07)
[2020-09-30] MEDS: SENNOSIDES 8.6MG TABLET (FP) PO SCH (09:38)
[2020-09-30] MEDS ORDERED: INSULIN (NOVOLOG) ASPART 100 UNITS/ML 10ML VIAL ONE (11:31)
[2020-09-30] MEDS ORDERED: DEXAMETHASONE SOD PHOSPHATE 10 MG/1 ML VIAL IVPUSH SCH (22:00)
[2020-09-30] MEDS: ROSUVASTATIN CA 10 MG TABLET (FP) PO SCH (22:07)
[2020-10-01 05:32] VITALS: TEMP 97.7
[2020-10-01] MEDS: HEPARIN NA (PORCINE) 5,000 UNITS/ML 1ML VIAL SQ SCH ×2 (06:57→13:27)
[2020-10-01] MEDS: CYCLOBENZAPRINE HCL 5 MG TABLET PO SCH ×2 (06:57→13:28)
[2020-10-01] MEDS: INSULIN SLIDING SCALE (NOVOLOG) 1 VIAL SQ SCH ×2 (06:58→11:15)
[2020-10-01 09:14] LABS: BASO % 0.1 % (0-2.0); HEMATOCRIT 35.8 % (32.4-45.2); HEMOGLOBIN 11.7 GM/dL (10.7-15.3); LYMPH % 15.6 % (8-40); MCH 28.2 pg (25.7-33.7); MCHC 32.7 g/dl (32.0-36.0); MEAN CELL VOLUME 86.3 fl (80-96); MEAN PLT VOLUME 11.1 fl (7.5-11.1); MONO % 6.3 % (3.8-10.2); PLATELET COUNT 171 K/MM3 (134-434); RBC 4.15 M/mm3 (3.60-5.2); RDW 14.5 % (11.6-15.6); WHITE BLOOD COUNT 11.7 K/mm3 (4.0-10.0)
[2020-10-01] MEDS: SENNOSIDES 8.6MG TABLET (FP) PO SCH (09:42)
[2020-10-01] MEDS: FAMOTIDINE 20 MG TABLET PO SCH (09:42)
[2020-10-01] MEDS: VITAMIN B COMP W-C 1 EA TABLET (NEPHRO-VITE) PO SCH (09:42)
[2020-10-01] MEDS: DIMETHYL FUMARATE 240 MG PO SCH (09:44)
[2020-10-01 09:58] LABS: BLOOD UREA NITROGEN 28.8 mg/dL (7-18)
[2020-10-01 10:00] LABS: BILIRUBIN,TOTAL 0.2 mg/dL (0.2-1)
[2020-10-01] MEDS ORDERED: predniSONE 10 MG TABLET (UD) PO SCH (10:00)
[2020-10-01 10:01] LABS: CREATININE 1.4 mg/dL (0.55-1.3); PHOSPHOROUS 3.7 mg/dL (2.5-4.9); TOT PROT 6.4 g/dl (6.4-8.2)
[2020-10-01 10:13] LABS: MAGNESIUM 2.2 mg/dL (1.8-2.4)
[2020-10-01 10:44] LABS: ALBUMIN 2.9 g/dl (3.4-5.0)
[2020-10-01 14:36] VITALS: BP 127/57; PULSE 73
[2020-10-03] MEDS ORDERED: predniSONE 20 MG TABLET (UD) PO SCH (10:00)
== END 2020-10-01 15:35 | disposition home health service (06) | DRG 347 ==
LOC: JER 12:04 → JERBED 15:09 → J6S 21:10
PROVIDERS: ATTEND Student in an Organized Health Care Education/Training Program
DX: M54.16 Radiculopathy, lumbar region (principal); E66.9 Obesity, unspecified; M48.061 Spinal stenosis, lumbar region without neurogenic claudication; G35 Multiple sclerosis; G43.909 Migraine, unspecified, not intractable, without status migrainosus; G81.92 Hemiplegia, unspecified affecting left dominant side; I10 Essential (primary) hypertension; E78.5 Hyperlipidemia, unspecified; K59.00 Constipation, unspecified
CPT/HCPCS: 36415; 70450-TC; 70553-TC; 71045-TC-FY; 72148-TC; 80053; 81003; 82962; 83036; 83735; 84100; 84439; 84443; 85025; 87086; 93005; 93010; 97116-GP; 97162-GP; 99285-25; C9803; J0131; J0475; J1100; J1644; U0003; U0005

== ENCOUNTER 2022-04-02 16:45 | Emergency (ER) | payer OTHER ==
[2022-04-02 16:52] VITALS: BP 147/89; PULSE 64; RESP 18; TEMP 98.2; BMI 33.0
[2022-04-02] MEDS ORDERED: ACETAMINOPHEN 500 MG TABLET (FP) PO ONE (17:09)
[2022-04-02] MEDS ORDERED: ACETAMINOPHEN 325 MG TABLET (FP) ONE (17:28)
[2022-04-02] MEDS ORDERED: IBUPROFEN 600 MG TABLET (FP) PO ONE ×2 (19:06→19:38)
[2022-04-02] MEDS ORDERED: BACITRACIN 15 GM TUBE TOPICAL OINTMENT TP ONE (20:05)
== END 2022-04-02 20:21 | disposition home or self-care (01) ==
LOC: JERFT 16:45
DX: S99.912A Unspecified injury of left ankle, initial encounter (principal); W01.0XXA Fall on same level from slipping, tripping and stumbling without subsequent striking against object, initial encounter
CPT/HCPCS: 73560-TC-RT-FY; 73610-TC-LT-FY; 99284-25